=== PATIENT | male | born 1950 | race Caucasian/White ===

== ENCOUNTER → 2018-05-10 | Outpatient (CLI) | payer MEDICARE ==
[~2018-05-10] MED LIST: ACET-2422 PO; ACET325T49 PO; BARIUM SUSPENSION 105% (LIQUID POLIBAR PLUS) 240 ML/DOSE PO ONE; BARIUM SUSPENSION 60% (LIQUID EZ PAQUE) 240 ML DOSE PO ONE; BENZ-36 PO; CITA20TA12 PO; CITA20TA9 PO; CLOR3.755 PO; DIGO125T PO; DILT180C82 PO; DILT180C9 PO; DIPH25TA31 PO; FAMO-144 PO; FOLI1TAB24 PO; FURO40TA4 PO; INFL100V IV; LISI40TA PO; METH25VI57 IM; OXYC1TAB87 PO; POTA20TA8 PO; PRAV40TA2 PO; RIVA20TA PO; TRAZ-189 PO
--- NOTE | 2018-05-10 10:33 | Diagnostic Imaging Report ---
INDICATION: Preoperative gastric sleeve surgery. Patient ingested effervescent crystals as well as thin and thick barium and imaging of the esophagus, stomach and proximal small bowel was performed. A total of one minute and 12 seconds of fluoroscopy was utilized. The esophagus has a smooth contour. No mass or stricture is identified. No gastroesophageal reflux was demonstrated. There is no hiatal hernia identified. Prompt emptying into the small bowel is seen. Visualized small bowel is unremarkable. Stomach is grossly unremarkable. IMPRESSION: Unremarkable upper GI study. Dictated by: Dictated on workstation # [id number]
== END ==
LOC: RAD 08:57
PROVIDERS: ATTEND Surgery
DX: Z01.818 Encounter for other preprocedural examination (principal); K21.9 Gastro-esophageal reflux disease without esophagitis
CPT/HCPCS: 74241

== ENCOUNTER 2018-06-18 09:25 | Outpatient (CLI) | payer MEDICARE ==
[~2018-06-18] VITALS: Ht 182.9 cm; Wt 176.4 kg
[~2018-06-18 09:25] MED LIST changes: -BARIUM SUSPENSION 105% (LIQUID POLIBAR PLUS) 240 ML/DOSE PO ONE; -BARIUM SUSPENSION 60% (LIQUID EZ PAQUE) 240 ML DOSE PO ONE
[2018-06-18 09:42] VITALS: BP 150/74
[2018-06-18] MEDS ORDERED: FAMO20TA5 PO (10:18)
[2018-06-18] MEDS ORDERED: ALPR0.5T7 PO (10:18)
[2018-06-18] MEDS ORDERED: CALC-250 PO (10:18)
[2018-06-18] MEDS ORDERED: DILT120T3 PO (10:18)
[2018-06-18] MEDS ORDERED: TRAM50TA2 PO (10:18)
[2018-06-18] MEDS ORDERED: METH2.5T PO (10:18)
[2018-06-18] MEDS ORDERED: CALC600T12 PO (10:18)
[2018-06-18] MEDS ORDERED: GABA-488 PO (10:18)
[2018-06-18 10:37] LABS: BASOPHILS % (AUTO) 0 % (0-10); EOSINOPHILS # (AUTO) 0.2 10^3/uL (0.0-0.3); EOSINOPHILS % (AUTO) 3 % (0-10); HEMATOCRIT 42 % (40-54); HEMOGLOBIN 14.1 G/DL (13.3-17.7); LYMPHOCYTES # (AUTO) 1.3 X 10^3 (1.0-4.0); LYMPHOCYTES % (AUTO) 20 % (12-44); MEAN CORPUSCULAR HEMOGLOBIN 33 PG (25-34); MEAN CORPUSCULAR HGB CONC 34 G/DL (32-36); MEAN CORPUSCULAR VOLUME 97 FL (80-99); MEAN PLATELET VOLUME 11.5 FL (7.4-10.4); MONOCYTES # (AUTO) 0.6 X 10^3 (0.0-1.0); MONOCYTES % (AUTO) 9 % (0-12); NEUTROPHILS # (AUTO) 4.4 X 10^3 (1.8-7.8); NEUTROPHILS % (AUTO) 68 % (42-75); PLATELET COUNT 145 10^3/uL (130-400); RED BLOOD COUNT 4.31 10^6/uL (4.35-5.85); RED CELL DISTRIBUTION WIDTH 15.1 % (10.0-14.5); WHITE BLOOD COUNT 6.5 10^3/uL (4.3-11.0)
[2018-06-18 10:52] LABS: BUN/CREATININE RATIO 9; CALCIUM 9.4 MG/DL (8.5-10.1); CARBON DIOXIDE 22 MMOL/L (21-32); CHLORIDE 101 MMOL/L (98-107); CREATININE SERUM 0.94 MG/DL (0.60-1.30); GFR ESTIMATED > 60; GLUCOSE 77 MG/DL (70-105); POTASSIUM 3.8 MMOL/L (3.6-5.0); SODIUM 136 MMOL/L (135-145)
[2018-06-18] MEDS ORDERED: DILT-27 PO (14:57)
[2018-06-19] MEDS ORDERED: ALLERGY SHOT INJ (11:00)
[2018-06-19] MEDS ORDERED: TRAZ-190 PO (11:00)
== END 2018-06-18 10:10 | disposition home or self-care (01) ==
LOC: PREOP 09:25
PROVIDERS: ATTEND Surgery
DX: Z01.812 Encounter for preprocedural laboratory examination (principal); Z11.2 Encounter for screening for other bacterial diseases; E66.01 Morbid (severe) obesity due to excess calories; Z68.43 Body mass index [BMI] 50.0-59.9, adult
CPT/HCPCS: 36415; 80048; 85025; 87081

== ENCOUNTER 2018-06-21 06:15 | Inpatient (IN) | payer MEDICARE ==
[~2018-06-21] VITALS: Ht 182.9 cm; Wt 176.4 kg
[~2018-06-21 06:15] MED LIST changes: +ALLERGY SHOT INJ; +ALPR0.5T7 PO; +CALC-250 PO; +CALC600T12 PO; +DILT-27 PO; +DILT120T3 PO; +FAMO20TA5 PO; +GABA-488 PO; +METH2.5T PO; +TRAM50TA2 PO; +TRAZ-190 PO
--- OUTSIDE RECORDS SUMMARY | 2018-06-21 06:22 | XMS REPORT ---
Author Author BAILEE HAINES Organization [facility] [place] Address [address] [place] [address] Care Team Providers Care Refrigerator Car Icer Name Role Phone BAILEE HIANES Unavailable PROBLEMS Type Condition ICD9-CM Code [id number] Code Onset Dates Condition Status SNOMED Code Problem Situational phobia F40.248 Active [id number] ALLERGIES No Information ENCOUNTERS Encounter Location Date Diagnosis [facility] [place] [address] [facility] [id number] [address] May, Situational phobia F40.248 IMMUNIZATIONS No Known Immunizations SOCIAL HISTORY Never Assessed REASON FOR VISIT bariatric eval PLAN OF CARE VITAL SIGNS MEDICATIONS Unknown Medications RESULTS No Results PROCEDURES Procedure Date Ordered Result Body Site [facility] VISIT [facility]ENT[facility] NEW PT May 25, 2018 Psych diagnostic evaluation, new patient May 25, 2018 INSTRUCTIONS MEDICATIONS ADMINISTERED No Known Medications
[2018-06-21] MEDS ORDERED: ceFAZolin INJECTION 1,000 MG in NS (IVPB) 50 ML IV ONE (06:30)
[2018-06-21] MEDS ORDERED: CATHETER FLUSH 10 ML SYR IV PRN (06:45)
[2018-06-21 07:00] VITALS: BP 116/75
[2018-06-21] MEDS ORDERED: LACTATED RINGERS 1,000 ML IV PRN (07:09)
[2018-06-21] MEDS ORDERED: FAMOTIDINE 20MG/2ML IV (PEPCID) IV ONE (07:15)
[2018-06-21] MEDS ORDERED: MIDAZOLAM 2 MG/2 ML (VERSED) VIAL ONE (07:18)
[2018-06-21] MEDS ORDERED: proPOfol 200 MG/20 ML (DIPRIVAN) VIAL IV ONE (07:18)
[2018-06-21] MEDS ORDERED: fentaNYL INJECTION 100 MCG/2 ML AMP ONE ×2 (07:18→11:17)
[2018-06-21] MEDS ORDERED: LIDOCAINE PF 2% 5 ML (XYLOCAINE) VIAL ONE (07:19)
[2018-06-21] MEDS ORDERED: ONDANSETRON 4 MG/2 ML (SDV) Z0FRAN ONE (07:19)
[2018-06-21] MEDS ORDERED: SEVOFLURANE (ULTANE) 15 ML INHAL SOLN ONE ×5 (07:19→07:23)
[2018-06-21] MEDS ORDERED: DEXAMETHASONE 10 MG/ML (DECADRON) 1 ML VIAL ONE (07:19)
[2018-06-21] MEDS: LACTATED RINGERS 1,000 ML IV PRN ×3 (07:42→11:54)
[2018-06-21] MEDS ORDERED: BUP/EPI 0.5% 1:200,000 (SENSORCAINE) 30 ML VIAL ONE (07:46)
--- NOTE | 2018-06-21 08:20 | Progress Note-Pre Operative ---
Pre-Operative Progress Note H&P Reviewed The H&P was reviewed, patient examined and no changes noted. Date Seen by Provider: Jun 21, 2018 Time Seen by Provider: 08:10 Date H&P Reviewed: Jun 21, 2018 Time H&P Reviewed: 08:15 Pre-Operative Diagnosis: Morbid obesity, hypertension, PEARL, GERD ERICA ANAND APRN Jun 21, 2018 8:20 am
[2018-06-21] MEDS ORDERED: ceFAZolin 2 GM IV Premixed 50 ML IV ONE (08:45)
[2018-06-21] MEDS ORDERED: DILTIAZEM 25 MG/5 ML INJ (CARDIZEM) VIAL ONE (10:15)
[2018-06-21] MEDS ORDERED: LABETALOL HCL 20 MG/4 ML VIAL ONE (11:01)
[2018-06-21] MEDS ORDERED: SUCCINYLCHOLINE INJ 100 MG/5 ML SYR ONE (11:28)
[2018-06-21] MEDS ORDERED: ROCURONIUM 10 MG/ML 5 ML SYRINGE IV ONE (11:28)
[2018-06-21] MEDS ORDERED: NEOSTIGMINE 1 MG/ML 5 ML SYRINGE ONE (11:33)
[2018-06-21] MEDS ORDERED: GLYCOPYRROLATE 0.2 MG/ML (ROBINUL) 2 ML VIAL ONE (11:33)
[2018-06-21] MEDS ORDERED: NS IV 1000 ML 1,000 ML IV SCH (11:41)
--- NOTE | 2018-06-21 11:41 | Progress Note-Post Operative ---
Post-Operative Progess Note Surgeon (s)/Product Management Specialist (s) Surgeon ALINE GRAHAM MD Product Management Specialist: same Pre-Operative Diagnosis Morbid obesity, hypertension, PEARL, GERD Post-Operative Diagnosis same Procedure & Operative Findings Date of Procedure 06/21/18 Procedure Performed/Findings laparoscopic gastric sleeve resection. Anesthesia Type GET Estimated Blood Loss Estimated blood loss (mL): 125ml Specimens/Packing Specimens Removed stomach ALINE GRAHAM MD Jun 21, 2018 11:41 am
[2018-06-21] MEDS ORDERED: KETOROLAC 30 MG/ML VIAL ONE (11:42)
[2018-06-21] MEDS ORDERED: oxyCODONE 5 MG/5 ML ORAL SOLN (roxiCODONE) 5 ML UDC PO PRN (11:45)
[2018-06-21] MEDS ORDERED: NALOXONE 0.4 MG/ML 1 ML (NARCAN) VIAL IV PRN (11:45)
[2018-06-21] MEDS ORDERED: METOCLOPRAMIDE INJ 10 MG/2 ML (REGLAN) IV PRN (11:45)
[2018-06-21] MEDS ORDERED: fentaNYL INJECTION 1,000 MCG in NS (IVPB) 80 ML IV SCH (11:45)
[2018-06-21] MEDS ORDERED: ONDANSETRON 4 MG/2 ML (SDV) Z0FRAN IV PRN (11:45)
[2018-06-21] MEDS ORDERED: diphenhydrAMINE 50 MG/ML INJ (BENADRYL) IVP PRN (11:45)
[2018-06-21] MEDS ORDERED: HYDROmorphone 2 MG/ML VIAL (DILAUDID) ONE (11:54)
[2018-06-21] MEDS ORDERED: HYDROmorphone 2 MG/ML VIAL (DILAUDID) IV ONE (12:00)
[2018-06-21] MEDS ORDERED: ONDANSETRON 4 MG/2 ML (SDV) Z0FRAN IVP PRN (12:00)
[2018-06-21] MEDS ORDERED: METOCLOPRAMIDE INJ 10 MG/2 ML (REGLAN) ONE (12:18)
[2018-06-21] MEDS: METOCLOPRAMIDE INJ 10 MG/2 ML (REGLAN) IVP SCH ×2 (12:20→17:31)
[2018-06-21] MEDS: ONDANSETRON 4 MG/2 ML (SDV) Z0FRAN IVP SCH ×2 (12:23→17:31)
[2018-06-21 13:20] VITALS: BP 171/83
[2018-06-21] MEDS ORDERED: diphenhydrAMINE 25 MG TAB (BENADRYL) PO PRN (13:30)
[2018-06-21] MEDS: NS IV 500 ML 500 ML IV SCH (13:48)
[2018-06-21 14:20] VITALS: BP 169/84
[2018-06-21] MEDS: 1/2 NS W/KCL 20 MEQ/L 1,000 ML IV SCH ×3 (14:30→23:30)
[2018-06-21] MEDS: metroNIDAZOLE 500MG/100ML IVPB 100 ML IV SCH ×2 (14:30→20:23)
[2018-06-21 15:20] VITALS: BP 181/86
[2018-06-21] MEDS: ENOXAPARIN 60 MG/0.6 ML (LOVENOX) SYR SC SCH (15:20)
[2018-06-21] MEDS: RT-ALBUTEROL SULF 2.5 MG/3 ML PRE-MIX VIAL INH SCH ×4 (15:21→22:32)
[2018-06-21 16:20] VITALS: BP 174/80
[2018-06-21] MEDS ORDERED: FLU QUADRIvalent (5+ YOA) 2018-2019 (AFLURIA) 0.5 ML IM ONE (17:15)
[2018-06-21] MEDS: ceFAZolin 2 GM IV Premixed 50 ML IV SCH (17:31)
--- NOTE | 2018-06-21 19:13 | OPERATIVE REPORT ---
DATE OF SERVICE: 06/21/2018 ATTENDING PHYSICIAN: Dr. Porter. PREOPERATIVE DIAGNOSES: 1. Morbid obesity. 2. Gastroesophageal reflux disease. 3. Hypertension. 4. Sleep apnea. POSTOPERATIVE DIAGNOSES: 1. Morbid obesity. 2. Gastroesophageal reflux disease. 3. Hypertension. 4. Sleep apnea. PROCEDURE: Laparoscopic gastric sleeve resection. SURGEON: Aline Graham MD ANESTHESIA: General endotracheal. ESTIMATED BLOOD LOSS: 125 mL. FINDINGS: Mild liver steatosis, hepatomegaly, normal-appearing gallbladder. No hiatal hernia. DISPOSITION: The patient tolerated the procedure well. INDICATION FOR PROCEDURE: The patient is a 67-year-old male with morbid obesity who is in our surgical weight loss program for the laparoscopic gastric sleeve resection and meets the medical criteria for bariatric surgery. He began to gain the majority of his adult weight 20 years ago after suffering a back injury at work and since that time, he has had difficulty with exercise and doing regular activities. Over the course of 20 years he has gained over 200 pounds. He has tried a number of diet attempts including high protein, low carbohydrate diets as well as cessation of all sugar and would lose some weight; however, would regain the weight back. He has tried exercise programs including walking, treadmill, and exercise bike again with no success. His medical comorbidities related to his obesity include sleep apnea, hypertension, hypercholesterolemia, gastroesophageal reflux disease, anxiety, depression lower extremity edema, coronary artery disease, and peripheral neuropathy. DESCRIPTION OF PROCEDURE: The patient was brought to the operating room, laid supine on the table. After adequate IV pain and sedating medications and general endotracheal intubation, the abdomen was prepped and draped in standard surgical fashion. A 0.5% Marcaine with epinephrine was then used to anesthetize the overlying skin in the left upper abdominal quadrant. A small transverse skin incision made using a 15 blade. A 0 silk suture was applied to the medial aspect of the incision for traction and a Veress needle inserted with a low-opening pressure of 0 mmHg and the abdomen was then insufflated to 15 mmHg pressure. The Veress needle removed and a 5 mm Xcel trocar placed followed by a 5 mm 45-degree angle laparoscope to visualize the peritoneal cavity. A 4-quadrant abdominal exploration was performed. Early liver steatosis and hepatomegaly identified. The gallbladder appeared normal. There was no hiatal hernia identified. Under direct visualization, we then proceeded to place a midabdominal left of midline 10 mm port after the skin and peritoneal lining were anesthetized using 0.5% Marcaine with epinephrine and a transverse skin incision made using a 15 blade. In a similar manner, a midabdominal right of midline 15 mm port was placed followed by a right upper abdominal quadrant 5 mm port. The epigastric region was then anesthetized and a transverse skin incision made using 11 blade. A trocar to a 5-mm port was then used to create a tract to the abdominal wall layers and a medium size Nathansen liver retractor was placed in the left lobe of the liver retracting anteriorly and superiorly. The patient was then placed in steep reverse Trendelenburg position. We then measured 6 cm from the pylorus along the greater curvature and marked this with a marking pen. We then proceeded with opening the gastrocolic ligament next to the stomach entering the lesser sac. We then proceeded caudally approximately until we were approximately 2 cm below our marking using Sonicision with visualization of good hemostasis. We then proceeded proximally along the greater curvature taking down the short gastric vessels. The entire angle of His connective tissue fibers as well as the posterior stomach behind this was also dissected out. Good hemostasis was observed. A 42-Haitian tapered bougienage was then placed under direct visualization and the tip directed into the pylorus. Using the bougie as our guide, we proceeded with our gastric sleeve resection, first using a 45 mm polyglycolic acid black load approximately 2 cm below our marking. We then proceeded with two 60 mm black loads followed by two 60 mm purple loads completing our gastric sleeve resection leaving approximately 2 cm near the gastroesophageal junction. Good hemostasis was visualized. The staple line corners were then clipped with 5 mm clips. The Tisseel fibrin glue was then placed onto the staple line and the omentum placed over the staple line. The bougie was then removed. The stomach was removed through the 15 mm port site. The fascia and peritoneum to the 15, and 10 mm port sites were then closed under direct visualization using a Homero-Roslyn device and 0 Vicryl suture. The abdomen was desufflated and remaining ports removed. All skin incisions were closed using 4-0 Monocryl running subcuticular sutures. Wounds were then cleaned and covered with Dermabond. The patient tolerated the procedure well. We will admit him to the floor and start with IV pain medication with a DIRECTOR OF OPERATIONS pump. We will also proceed with DVT prophylaxis with early ambulation, calf SCDs as well as Lovenox injections. Tomorrow morning, we will start a phase I clear liquid diet. Once he is tolerating at least 60 mL of clears every 30 minutes, has adequate pain control with oral pain medication and is ambulating well, we will discharge him home. Job ID: [id number] DocumentID: [id number] Dictated Date: 06/21/2018 12:04:51 Watch Leader Date: 06/21/2018 19:12:51 Dictated By: ALINE GRAHAM MD
[2018-06-21 20:55] VITALS: BP 175/81
[2018-06-22 00:19] VITALS: BP 186/83
[2018-06-22] MEDS: ceFAZolin 2 GM IV Premixed 50 ML IV SCH ×2 (00:50→08:21)
[2018-06-22] MEDS: ENOXAPARIN 60 MG/0.6 ML (LOVENOX) SYR SC SCH (00:54)
[2018-06-22] MEDS: RT-ALBUTEROL SULF 2.5 MG/3 ML PRE-MIX VIAL INH SCH ×2 (02:37→06:36)
[2018-06-22] MEDS: METOCLOPRAMIDE INJ 10 MG/2 ML (REGLAN) IVP SCH ×2 (02:55)
[2018-06-22 04:10] VITALS: BP 175/81
[2018-06-22] MEDS: NS IV 500 ML 500 ML IV SCH (04:32)
[2018-06-22] MEDS: metroNIDAZOLE 500MG/100ML IVPB 100 ML IV SCH (05:10)
[2018-06-22] MEDS: ONDANSETRON 4 MG/2 ML (SDV) Z0FRAN IVP SCH ×2 (05:10)
[2018-06-22 06:45] LABS: HEMOGLOBIN 13.6 G/DL (13.3-17.7); MEAN PLATELET VOLUME 11.2 FL (7.4-10.4); RED BLOOD COUNT 4.17 10^6/uL (4.35-5.85); RED CELL DISTRIBUTION WIDTH 14.9 % (10.0-14.5); WHITE BLOOD COUNT 10.2 10^3/uL (4.3-11.0)
[2018-06-22 07:04] LABS: BUN/CREATININE RATIO 5; CALCIUM 9.3 MG/DL (8.5-10.1); CARBON DIOXIDE 17 MMOL/L (21-32); CHLORIDE 101 MMOL/L (98-107); CREATININE SERUM 1.17 MG/DL (0.60-1.30); GFR ESTIMATED > 60; GLUCOSE 126 MG/DL (70-105); POTASSIUM 4.3 MMOL/L (3.6-5.0); SODIUM 135 MMOL/L (135-145)
[2018-06-22 08:00] VITALS: BP 159/81
[2018-06-22] MEDS: 1/2 NS W/KCL 20 MEQ/L 1,000 ML IV SCH (08:16)
--- NOTE | 2018-06-22 08:51 | Anesthesia-General Post-Op ---
General Patient Condition Mental Status/LOC: Same as Preop Cardiovascular: Satisfactory Nausea/Vomiting: Absent Respiratory: Satisfactory Pain: Controlled Complications: Absent Post Op Complications Complications None Follow Up Care/Instructions Patient Instructions None needed. Anesthesia/Patient Condition Patient Condition Patient is doing well, no complaints, stable vital signs, no apparent adverse anesthesia problems. No complications reported per nursing. BRANDI VAZQUEZ CRNA Jun 22, 2018 08:50
[2018-06-22] MEDS ORDERED: PANTOPRAZOLE 40 MG (PROTONIX) VIAL IV SCH (09:00)
[2018-06-22] MEDS ORDERED: PANTOPRAZOLE 40 MG (PROTONIX) TAB PO SCH (09:00)
[2018-06-22] MEDS ORDERED: SENNA W/DOCUSATE (SENOKOT S) TABLET PO SCH (09:00)
[2018-06-22] MEDS ORDERED: METOCLOPRAMIDE INJ 10 MG/2 ML (REGLAN) IVP PRN (11:45)
[2018-06-22] MEDS ORDERED: ONDANSETRON 4 MG/2 ML (SDV) Z0FRAN IVP PRN (11:45)
== END 2018-06-22 10:30 | disposition home or self-care (01) | DRG 621 ==
LOC: 4TH 06:15 → SURG 06:16 → EDSTATUS 08:00 → 4TH 13:05
PROVIDERS: ADMIT Surgery; ATTEND Surgery
PROC: 0DB64Z3 Excision of Stomach, Percutaneous Endoscopic Approach, Vertical (ICD-10-PCS; principal; 2018-06-21 10:03)
DX: E66.01 Morbid (severe) obesity due to excess calories (principal); Z68.43 Body mass index [BMI] 50.0-59.9, adult; K21.9 Gastro-esophageal reflux disease without esophagitis; I10 Essential (primary) hypertension; F41.9 Anxiety disorder, unspecified; F32.9 Major depressive disorder, single episode, unspecified; R60.0 Localized edema; G47.33 Obstructive sleep apnea (adult) (pediatric); E78.00 Pure hypercholesterolemia, unspecified; I25.10 Atherosclerotic heart disease of native coronary artery without angina pectoris; G62.9 Polyneuropathy, unspecified; M06.9 Rheumatoid arthritis, unspecified; L40.50 Arthropathic psoriasis, unspecified; F17.220 Nicotine dependence, chewing tobacco, uncomplicated; Z80.3 Family history of malignant neoplasm of breast; Z80.49 Family history of malignant neoplasm of other genital organs; Z80.52 Family history of malignant neoplasm of bladder
CPT/HCPCS: 36415; 80048; 85027; 88307; 94640; 94664; 94760

== ENCOUNTER → 2019-03-07 | Outpatient (CLI) | payer MEDICARE ==
[~2019-03-07] MED LIST changes: -RIVA20TA PO; +RIVA20TA2 PO; -TRAZ-189 PO; +TRAZ-222 PO
--- NOTE | 2019-03-07 15:40 | Diagnostic Imaging Report ---
INDICATION: Fall two weeks ago, complaining of right shoulder pain. TIME OF EXAM: 3:31 p.m. FINDINGS: Two views of the right shoulder demonstrate normal glenohumeral and acromioclavicular alignment. Acromiohumeral space is normal. No fracture or dislocation is seen. IMPRESSION: No acute bony abnormality is detected. Dictated by: Dictated on workstation # [id number]
== END ==
LOC: RAD FS 15:23
PROVIDERS: ATTEND Nurse Practitioner Family
DX: S49.91XA Unspecified injury of right shoulder and upper arm, initial encounter (principal); W19.XXXA Unspecified fall, initial encounter
CPT/HCPCS: 73030

== ENCOUNTER 2019-04-30 10:18 | Day surgery (SDC) | payer MEDICARE ==
[~2019-04-30] VITALS: Ht 182.9 cm; Wt 151.5 kg
[2019-04-30] VITALS (8 sets, daily range): BP systolic 81–128; BP diastolic 65–83
[2019-04-30] MEDS ORDERED: LIDOCAINE 1% INJ 20 ML 20 ML VIAL ONE (10:24)
[2019-04-30] MEDS ORDERED: HEParin (CATH LAB) 2,000 ML IV ONE (10:25)
[2019-04-30] MEDS ORDERED: NS IV 1000 ML 1,000 ML ONE (10:25)
[2019-04-30] MEDS ORDERED: NS IV 1000 ML 1,000 ML IV SCH ×2 (10:43→15:06)
[2019-04-30 11:12] LABS: HEMOGLOBIN 14.1 G/DL (13.3-17.7); RED CELL DISTRIBUTION WIDTH 14.7 % (10.0-14.5); WHITE BLOOD COUNT 6.1 10^3/uL (4.3-11.0)
[2019-04-30 11:26] LABS: PROTHROMBIN TIME PATIENT 13.9 SEC (12.2-14.7)
[2019-04-30 11:33] LABS: ALANINE AMINOTRANSFERASE 20 U/L (0-55); ALKALINE PHOSPHATASE 108 U/L (40-136); BILIRUBIN,TOTAL 0.6 MG/DL (0.1-1.0); BUN/CREATININE RATIO 18; CALCIUM 9.2 MG/DL (8.5-10.1); CARBON DIOXIDE 24 MMOL/L (21-32); CHLORIDE 108 MMOL/L (98-107); CHOLESTEROL 146 MG/DL (< 200); CREATININE SERUM 0.83 MG/DL (0.60-1.30); GFR ESTIMATED > 60; GLUCOSE 101 MG/DL (70-105); HDL CHOLESTEROL 48 MG/DL (40-60); POTASSIUM 4.1 MMOL/L (3.6-5.0); SODIUM 140 MMOL/L (135-145); TOTAL PROTEIN 7.5 GM/DL (6.4-8.2); TRIGLYCERIDES 84 MG/DL (<150); VLDL CHOLESTEROL 17 MG/DL (5-40)
[2019-04-30] MEDS ORDERED: METH2.5T PO (11:46)
[2019-04-30] MEDS ORDERED: TRAM50TA2 PO (11:46)
[2019-04-30] MEDS ORDERED: PANT40TA3 PO (11:46)
[2019-04-30] MEDS ORDERED: ASPI-586 PO (11:46)
[2019-04-30] MEDS ORDERED: CHOL100045 PO (11:46)
[2019-04-30] MEDS ORDERED: ONDN4T PO (11:48)
[2019-04-30] MEDS ORDERED: fentaNYL INJECTION 100 MCG/2 ML AMP ONE (14:11)
[2019-04-30] MEDS ORDERED: MIDAZOLAM 5 MG/5 ML (VERSED) VIAL ONE (14:11)
--- NOTE | 2019-04-30 14:30 | Cardiac Procedure Note-CS/ASA ---
Pre-Procedure Note Pre-Op Procedure Note H&P Reviewed The H&P was reviewed, patient examined and no changes noted. Date H&P Reviewed: Apr 30, 2019 Time H&P Reviewed: 14:30 Conscious Sedation Pre-Proced Time 14:30 ASA Score 3 For ASA 3 and 4: Consider anesthesia and medical clearance. Also, for patients with a history of failed moderate sedation consider anesthesia. Airway Lungs Heart ASA score ASA 1: a normal healthy patient ASA 2: a patient with a mild systemic disease (mid diabetes, controlled hypertension, obesity ASA 3: a patient with a severe systemic disease that limits activity (angina, COPD, prior Myocardial infarction) ASA 4: a patient with an incapacitating disease that is a constant threat to life (CHF, renal failure) ASA 5: a moribund patient not expected to survive 24 hrs. (ruptured aneurysm) ASA 6: a declared brain- patient whose organs are being harvested. For emergent operations, add the letter E after the classification Mallampati Classification Grade 3 Sedation Plan Analgesia, Amnesia, Plan communicated to team members, Discussed options with patient/fam, Discussed risks with patient/fam The patient is an appropriate candidate to undergo the planned procedure, sedation, and anesthesia. The patient immediately re-assessed prior to indication. POP STEPHENS MD FACP FAC CCDS Apr 30, 2019 14:30
--- NOTE | 2019-04-30 15:09 | Discharge Inst-Cardiology ---
Discharge Inst-Cardiac Problems Reviewed?: Yes Discharge Medications Continued Medications: Acetaminophen (Acetaminophen ER) 650 Mg Tablet.er 650 MG PO TID PRN for PAIN-MILD, TAB [Allergy Shot] () INJ Castellanos Alprazolam (Alprazolam) 0.5 Mg Tablet 0.5 MG PO TID PRN for ANXIETY, TAB Aspirin (Aspir 81) 81 Mg Tablet.dr 81 MG PO DAILY, TAB Cholecalciferol (Vitamin D3) (Vitamin D) 1,000 Unit Tablet 1000 UNIT PO DAILY, TAB Citalopram Hydrobromide (Citalopram HBr) 20 Mg Tablet 20 MG PO BID Diltiazem HCl (Diltiazem 24Hr ER) 120 Mg Cap.er.24h 120 MG PO DAILY, CAP Diphenhydramine HCl (Diphenhydramine HCl) 25 Mg Tablet 25 MG PO HS, TAB Folic Acid (Folic Acid) 1 Mg Tablet 1 MG PO DAILY, TAB Furosemide (Furosemide) 40 Mg Tablet 40 MG PO BID, TAB Gabapentin (Gabapentin) 300 Mg Capsule 300 MG PO BID, CAP prescribed TID, but only take BID Infliximab (Remicade) 100 Mg Soln 1000 MG IV Q 8 weeks, EA Lisinopril (Lisinopril) 40 Mg Tablet 40 MG PO DAILY, TAB Methotrexate Sodium (Methotrexate) 2.5 Mg Tablet 12.5 MG PO Monday and Monday, TAB Ondansetron HCl (Zofran) 4 Mg Tab 4 MG PO Q4H PRN for NAUSEA/VOMITING, TAB Pantoprazole Sodium (Pantoprazole Sodium) 40 Mg Tablet.dr 40 MG PO DAILY, TAB Potassium Chloride (Klor-Con M20) 20 Meq Tab.er.prt 20 MEQ PO BID Pravastatin Sodium (Pravastatin Sodium) 40 Mg Tablet 40 MG PO HS, TAB Rivaroxaban (Xarelto Tablet) 20 Mg Tablet 20 MG PO HS, TAB Tramadol HCl (Tramadol HCl) 50 Mg Tablet 50 MG PO BID PRN for PAIN-MODERATE, TAB Trazodone HCl (Trazodone HCl) 100 Mg Tablet 100 MG PO HS, TAB POP STEPHENS MD FACP FAC CCDS Apr 30, 2019 15:09
--- NOTE | 2019-04-30 15:10 | Discharge Inst-Post CATH ---
Discharge Inst-CATH/EP Problems Reviewed?: Yes Final Diagnosis F/u with Dr Bills in 2 weeks Post Cardiac Cath/EP D/C Inst ACTIVITY * Go Home directly and rest. * Limit activity of the leg (or wrist if it was used) for 7 days including aerobics, swimming, jogging, bicycling, etc. * Restrict stair-climbing for 7 days if possible, if not, climb up with your non-cath leg, then bring together on the same step. * Avoid lifting, pushing, pulling or excessive movement of the affected extremity for 7 days. * Customary sexual activity may be resumed after 2 days-use caution not to use a position that strains or causes pain to the affected extremity. * No driving for 24 hours. * NO SMOKING. * Avoid straining for bowel movements for 7 days. * Gentle walking on level ground is allowed. * Returning to work will depend on the type of procedure and the results. Your doctor will discuss this with you. CALL YOUR DOCTOR FOR ANY OF THE FOLLOWING: *If bleeding from the puncture site occurs- Apply gentle pressure to site with clean cloth and call your doctor or EMS. * If a knot or lump forms under the skin, increases in size, or causes pain. * If bruising appears to be worsening or moving further down your leg instead of disappearing. * Temperature above 101 F. CARE OF YOUR GROIN INCISION; * Bruising or purple discoloration of the skin near the puncture site is common. * You may shower only, no bathtub bathing for 5 days. Be careful to avoid slipping as your leg may feel stiff. * If a closure device was used on your femoral artery, please see the attached guide regarding care of the device and your leg. * Leave dressing on FOR 24 hours. CARE OF YOUR WRIST INCISION; * Bruising or purple discoloration of the skin near the puncture site is common. * You may shower. * DO NOT submerge wrist. * Leave dressing on FOR 24 hours. POP BILLS MD FACP FAC CCDS Apr 30, 2019 15:10
[2019-04-30] MEDS ORDERED: PATIENT MAY USE OWN MEDS, ALL PO SCH (15:15)
--- NOTE | 2019-04-30 20:07 | CARDIAC CATHETERIZATION ---
DATE OF SERVICE: 04/30/2019 CARDIAC CATHETERIZATION REPORT The patient is a 68-year-old man who is due to undergo surgery and who is known to have coronary artery disease and has had stenting of a diagonal with a 2.5 x 20 mm stent in 2011. A myocardial perfusion imaging study carried out at the [facility] in [place], [place]. It was reported to have shown a fixed posterobasal defect and a very small reversible defect in the lateral apical portion of the left ventricle. Accordingly, cardiac catheterization was recommended and was carried out today after having obtained informed consent. PROCEDURE: He was brought to the cardiac catheterization laboratory in a fasting state. Right groin was prepared and draped in the usual sterile fashion. Lidocaine 1% for local anesthesia. Modified Seldinger technique used to advance a 5-Kyrgyz sheath in right femoral artery, 5-Kyrgyz JL4 catheter for coronary angiography, 5-Kyrgyz JR4 catheter for right coronary angiography, 5-Kyrgyz pigtail catheter was used for left heart catheterization and left ventricular angiography. Angiography of the right femoral artery was carried out through the sheath. Mynx was used to achieve hemostasis. He tolerated the procedure well. HEMODYNAMICS: Left ventricular end-diastolic pressure following coronary angiography was 14 mmHg. There is no significant pressure gradient on pullback across the aortic valve. Ascending aortic pressure was 90/57 with a mean of 71 mmHg. CORONARY ANGIOGRAPHY: Left main coronary artery is free of significant disease. Left anterior descending artery is free of significant disease. The first diagonal branch of the left anterior descending artery is stented in its proximal segment of the stent is patent. There is mild proximal disease in the first diagonal branch of the left anterior descending. Left circumflex artery has mild plaques. Right coronary artery is dominant and does not exhibit significant disease. Mild plaques are seen in the right coronary artery. LEFT VENTRICULAR ANGIOGRAPHY: Left ventricular angiography was carried out in the right anterior oblique projection. Global left ventricular systolic function is well preserved. Mild catheter-induced mitral regurgitation is seen. There appears to be mild to moderate mitral annular calcification. No distinct regional wall motion abnormalities are seen. Left ventricular ejection fraction approximately 55% to 60%. CONCLUSIONS: 1. Angiographically mild coronary artery disease. 2. Patent stent (known to be 2.5 x 20 mm placed in 2011 in [place], [place]) in the first diagonal branch of the left anterior descending. 3. Mild elevation of left ventricular end-diastolic pressure. 4. Well preserved global left ventricular systolic function with ejection fraction approximately 55% to 60%. DISCUSSION AND RECOMMENDATIONS: Based on results of the study, it appears appropriate to continue a conservative approach. Risk factor modification has been reviewed. Current regimen is being continued. He is due to undergo shoulder surgery. Risk for shoulder surgery is estimated to be intermediate and well optimized. He understands its risks and wishes to proceed. Job ID: [id number] DocumentID: [id number] Dictated Date: 04/30/2019 15:03:11 Business Office Coordinator Date: 04/30/2019 20:06:18 Dictated By: POP STEPHENS MD, MA, FACP, FACC,
== END 2019-04-30 20:05 ==
LOC: CATH 10:18 → ICU 15:15 → CATH 20:05
PROVIDERS: ATTEND Internal Medicine Cardiovascular Disease
DX: I25.10 Atherosclerotic heart disease of native coronary artery without angina pectoris (principal); I48.1 Persistent atrial fibrillation; I10 Essential (primary) hypertension; E66.9 Obesity, unspecified; E78.5 Hyperlipidemia, unspecified; G47.33 Obstructive sleep apnea (adult) (pediatric); G89.29 Other chronic pain; M54.9 Dorsalgia, unspecified; F17.210 Nicotine dependence, cigarettes, uncomplicated; Z95.1 Presence of aortocoronary bypass graft; Z79.82 Long term (current) use of aspirin; Z79.899 Other long term (current) drug therapy; Z79.01 Long term (current) use of anticoagulants; Z68.42 Body mass index [BMI] 45.0-49.9, adult; Z83.3 Family history of diabetes mellitus; Z80.9 Family history of malignant neoplasm, unspecified; Z82.49 Family history of ischemic heart disease and other diseases of the circulatory system
CPT/HCPCS: 36415; 80053; 80061; 85027; 85610; 85730; 87081; 93458

== ENCOUNTER 2019-05-04 01:35 | Emergency (ER) | payer MEDICARE ==
[~2019-05-04] VITALS: Ht 182 cm; Wt 151.0 kg
[~2019-05-04 01:35] MED LIST changes: +ASPI-586 PO; +CHOL100045 PO; +ONDN4T PO; +PANT40TA3 PO
--- NOTE | 2019-05-04 02:07 | ED Upper Extremity ---
General Stated Complaint: RIGHT WRIST PAIN Source: patient Exam Limitations: no limitations History of Present Illness Date Seen by Provider: May 04, 2019 Time Seen by Provider: 01:55 Initial Comments The patient is a 68-year-old male who presents for evaluation of right wrist pain and swelling. The patient has a history of psoriatic arthritis and takes me thotrexate but when he recently went to get his methotrexate filled the pharmacy was out of it so he has not been able to take it for the last few weeks. He states he noticed some soreness of the right wrist yesterday morning but overnight tonight the pain became acutely worse. He states that he sleeps in a recliner and he is unsure if he could've injured the wrist but denies any trauma he can recall. He states that he does have some mild chronic pain in both wrists but that this is different. He denies fevers or chills, any other joint pain, chest pain or shortness of breath, nausea or vomiting. 4 days ago the patient was having some chest discomfort and shortness of breath and had a cardiac catheter. The catheter showed some mild coronary artery disease with a patent previous symptoms which have been placed in 2011 as well as a good EF and otherwise functioning heart. His access was in the groin that he did have an IV in the right forearm but nothing near the right wrist. The patient denies a history of gout. He is alert and oriented 4, appears uncomfortable, but is in no distress this time. Onset: yesterday Severity: severe Pain/Injury Location: right wrist Method of Injury: unknown Modifying Factors: Improves With Movement (makes it worse) Allergies and Home Medications Allergies Coded Allergies: No Known Drug Allergies (Unverified , 03/23/16) Home Medications Acetaminophen 650 Mg Tablet.er, 650 MG PO TID PRN for PAIN-MILD, (Reported) Alprazolam 0.5 Mg Tablet, 0.5 MG PO TID PRN for ANXIETY, (Reported) Aspirin 81 Mg Tablet.dr, 81 MG PO DAILY, (Reported) Cholecalciferol (Vitamin D3) 1,000 Unit Tablet, 1,000 UNIT PO DAILY, (Reported) Citalopram Hydrobromide 20 Mg Tablet, 20 MG PO BID, (Reported) Diltiazem HCl 120 Mg Cap.er.24h, 120 MG PO DAILY, (Reported) Diphenhydramine HCl 25 Mg Tablet, 25 MG PO HS, (Reported) Folic Acid 1 Mg Tablet, 1 MG PO DAILY, (Reported) Furosemide 40 Mg Tablet, 40 MG PO BID, (Reported) Gabapentin 300 Mg Capsule, 300 MG PO BID, (Reported) prescribed TID, but only take BID Infliximab 100 Mg Soln, 1,000 MG IV Q 8 weeks, (Reported) Lisinopril 40 Mg Tablet, 40 MG PO DAILY, (Reported) Methotrexate Sodium 2.5 Mg Tablet, 12.5 MG PO Monday and Monday, (Reported) Ondansetron HCl 4 Mg Tab, 4 MG PO Q4H PRN for NAUSEA/VOMITING, (Reported) Pantoprazole Sodium 40 Mg Tablet.dr, 40 MG PO DAILY, (Reported) Potassium Chloride 20 Meq Tab.er.prt, 20 MEQ PO BID, (Reported) Pravastatin Sodium 40 Mg Tablet, 40 MG PO HS, (Reported) Rivaroxaban 20 Mg Tablet, 20 MG PO HS, (Reported) Tramadol HCl 50 Mg Tablet, 50 MG PO BID PRN for PAIN-MODERATE, (Reported) Trazodone HCl 100 Mg Tablet, 100 MG PO HS, (Reported) [Allergy Shot] , INJ Castellanos, (Reported) Patient Home Medication List Home Medication List Reviewed: Yes Review of Systems Constitutional: no symptoms reported EENTM: no symptoms reported Respiratory: no symptoms reported Cardiovascular: no symptoms reported Gastrointestinal: no symptoms reported Genitourinary: no symptoms reported Musculoskeletal: joint pain (right wrist pain and swelling) Skin: no symptoms reported Psychiatric/Neurological: No Symptoms Reported All Other Systems Reviewed Negative Unless Noted: Yes Past Fklrokl-Zpqjht-Wvkckw Hx Past Med/Social Hx: Reviewed Nursing Past Med/Soc Hx Patient Social History Alcohol Beverage of Choice: Beer, Whiskey Type Used: Cigarettes, Smokeless Tobacco Former Smoker, Quit: Mar 23, 1976 Recent Foreign Travel: No Contact w/Someone Who Travel: No Recent Hopitalizations: No Immunizations Up To Date Date of Pneumonia Vaccine: Jun 21, 2015 Seasonal Allergies Seasonal Allergies: Yes (ALLERGY SHOTS ONCE A WEEK) Past Medical History Surgeries: Yes (RIGHT KNEE SCOPE, R TKR LUMBAR BACK, BLADDER POLYPS) Respiratory: Yes (DOEST USE CPAP-CLAUSTROPHIC) Sleep Apnea Cardiac: Yes (STENT 2012 CARDIAC (AND LEG?)) Atrial Fibrillation, High Cholesterol, Hypertension, Valvular Heart Disease Neurological: Yes Reproductive Disorders: No Sexually Transmitted Disease: No HIV/AIDS: No Genitourinary: No Gastrointestinal: Yes Gastroesophageal Reflux, Polyps Musculoskeletal: Yes (psoriatic arthritis) Arthritis, Chronic Back Pain Endocrine: No HEENT: No Loss of Vision: Bilateral Hearing Impairment: Denies Cancer: No Did You Recieve Any Treatments: No Psychosocial: Yes Anxiety, Depression Integumentary: Yes Psoriasis Blood Disorders: No Adverse Reaction/Blood Tranf: No (HAS HAD BLOOD WITH NO REACTION) Family Medical History CANCER 19 FATHER 19 MOTHER (BREAST AND BLADDER) G8 SISTER (BREAST BOTH SISTERS) Hypertension 19 MOTHER G8 SISTER No Pertinent Family Hx Physical Exam Vital Signs Vital Signs - First Documented 05/04/19 01:49 Temp 36.7 Pulse 70 Resp 18 B/P (MAP) 165/80 (108) Pulse Ox 100 O2 Delivery Room Air Capillary Refill : Height, Weight, BMI Height: 6'0.00" Weight: 334lbs. 0.0oz. [id number]; 45.3 BMI Method: General Appearance: WD/WN, no apparent distress HEENT: PERRL/EOMI, normal ENT inspection Neck: non-tender, full range of motion, supple Cardiovascular: regular rate, rhythm, no JVD, other (1+ b/l pedal edema) Respiratory: chest non-tender, lungs clear, normal breath sounds, no respiratory distress Gastrointestinal: normal bowel sounds, non tender, soft Elbow/Forearm: normal inspection, non-tender, no evidence of injury Wrist: Yes limited ROM (secondary to pain/swelling right wrist), Yes pain, Yes soft tissue tenderness (right wrist), Yes swelling (mild wrist swelling, no erythema or warmth, similar amount of swelling in left wrist which is asymptomatic) Neurologic/Psychiatric: no motor/sensory deficits, alert, normal mood/affect, oriented x 3 Skin: normal color, warm/dry, other (no skin redness to either wrist) Progress/Results/Core Measures Results/Orders Lab Results Laboratory Tests Test 05/04/19 01:55 Range/Units White Blood Count 11.1 H 4.3-11.0 10^3/uL Red Blood Count 4.59 4.35-5.85 10^6/uL Hemoglobin 14.8 13.3-17.7 G/DL Hematocrit 44 40-54 % Mean Corpuscular Volume 96 80-99 FL Mean Corpuscular Hemoglobin 32 25-34 PG Mean Corpuscular Hemoglobin Concent 34 32-36 G/DL Red Cell Distribution Width 13.7 10.0-14.5 % Platelet Count 160 130-400 10^3/uL Mean Platelet Volume 10.8 H 7.4-10.4 FL Neutrophils (%) (Auto) 63 42-75 % Lymphocytes (%) (Auto) 25 12-44 % Monocytes (%) (Auto) 8 0-12 % Eosinophils (%) (Auto) 2 0-10 % Basophils (%) (Auto) 1 0-10 % Neutrophils # (Auto) 7.0 1.8-7.8 X 10^3 Lymphocytes # (Auto) 2.8 1.0-4.0 X 10^3 Monocytes # (Auto) 0.9 0.0-1.0 X 10^3 Eosinophils # (Auto) 0.3 0.0-0.3 10^3/uL Basophils # (Auto) 0.1 0.0-0.1 10^3/uL Sodium Level 134 L 135-145 MMOL/L Potassium Level 3.8 3.6-5.0 MMOL/L Chloride Level 94 L 98-107 MMOL/L Carbon Dioxide Level 24 21-32 MMOL/L Anion Gap 16 H 5-14 MMOL/L Blood Urea Nitrogen 12 7-18 MG/DL Creatinine 0.85 0.60-1.30 MG/DL Estimat Glomerular Filtration Rate > 60 BUN/Creatinine Ratio 14 Glucose Level 99 70-105 MG/DL Calcium Level 10.0 8.5-10.1 MG/DL Corrected Calcium 9.7 8.5-10.1 MG/DL Total Bilirubin 0.7 0.1-1.0 MG/DL Aspartate Amino Transf (AST/SGOT) 26 5-34 U/L Alanine Aminotransferase (ALT/SGPT) 21 0-55 U/L Alkaline Phosphatase 114 40-136 U/L Total Protein 8.5 H 6.4-8.2 GM/DL Albumin 4.4 3.2-4.5 GM/DL My Orders Orders - RAJNI EDWARD DO Cbc With Automated Diff (05/04/19 02:04) Erythrocyte Sedimentation Rate (05/04/19 02:04) Hs C Reactive Protein (05/04/19 02:04) Comprehensive Metabolic Panel (05/04/19 02:04) Uric Acid (05/04/19 02:04) Wrist 3 View Right (05/04/19 02:04) Ekg Tracing (05/04/19 02:04) Fentanyl Injection (Sublimaze Injection (05/04/19 02:15) Ice: Apply To Affected Area (05/04/19 02:24) Ed Iv/Invasive Line Start (05/04/19 02:44) Ketorolac Injection (Toradol Injection) (05/04/19 03:00) Methylprednisolone Sod Succ (Solu-Medrol (05/04/19 03:00) Oxycodone/Apap 5/325mg Tablet (Percocet (05/04/19 03:15) Medications Given in ED Current Medications Medications Dose Ordered Sig/Kassidy Route Start Time Stop Time Status Last Admin Dose Admin Fentanyl Citrate 75 mcg ONCE ONCE IVP 05/04/19 02:15 05/04/19 02:16 DC 05/04/19 02:20 75 MCG Ketorolac Tromethamine 30 mg ONCE ONCE IVP 05/04/19 03:00 05/04/19 03:01 DC 05/04/19 02:57 30 MG Methylprednisolone Sodium Succinate 125 mg ONCE ONCE IVP 05/04/19 03:00 05/04/19 03:01 DC 05/04/19 02:57 125 MG Vital Signs/I&O 05/04/19 01:49 Temp 36.7 Pulse 70 Resp 18 B/P (MAP) 165/80 (108) Pulse Ox 100 O2 Delivery Room Air Progress Progress Note : Progress Note @0305 - patient updated on lab and imaging results. The preliminary read of the chest x-ray shows some degenerative changes however no acute traumatic injury. The patient reports feeling much better after medications. Advised the patient to follow up with orthopedics in the next 1-2 days and to return to the emergency Department immediately for new or worsening symptoms such as fever or worsening pain. The patient expresses verbal understanding and agreement with t he plan and states that he would like to go home at this time. Uric acid and CRP are both send outs have not yet resulted. The patient states that he is going to start his methotrexate tomorrow as the pharmacy is getting a supply. Comment @0211 - Atrial fibrillation, rate of 75, normal axis, no acute ischemic findings noted, no STEMI, reviewed and interpreted by myself Departure Impression Primary Impression: Right wrist pain Disposition: 01 HOME, SELF-CARE Condition: Stable Departure-Patient Inst. Referrals: [facility] (PCP) Primary Care Physician DEANNA YOON APRN (Family) Primary Care Physician Patient Instructions: Common Wrist Injuries (DC), Gout (DC), Psoriatic Arthritis in Adults Add. Discharge Instructions: Follow-up with your orthopedic doctor in the next 1-2 days. Return to the Emergency Department immediately for new or worsening symptoms. Take the prescribed medicine as directed, as needed for pain. RAJNI EDWARD DO May 04, 2019 02:07
[2019-05-04 02:13] LABS: HEMATOCRIT 44 % (40-54); HEMOGLOBIN 14.8 G/DL (13.3-17.7); MEAN CORPUSCULAR HEMOGLOBIN 32 PG (25-34); MEAN CORPUSCULAR HGB CONC 34 G/DL (32-36); MEAN CORPUSCULAR VOLUME 96 FL (80-99); MEAN PLATELET VOLUME 10.8 FL (7.4-10.4); NEUTROPHILS % (AUTO) 63 % (42-75); PLATELET COUNT 160 10^3/uL (130-400); RED CELL DISTRIBUTION WIDTH 13.7 % (10.0-14.5); WHITE BLOOD COUNT 11.1 10^3/uL (4.3-11.0)
[2019-05-04 02:14] LABS: BASOPHILS # (AUTO) 0.1 10^3/uL (0.0-0.1); BASOPHILS % (AUTO) 1 % (0-10); EOSINOPHILS # (AUTO) 0.3 10^3/uL (0.0-0.3); EOSINOPHILS % (AUTO) 2 % (0-10); LYMPHOCYTES # (AUTO) 2.8 X 10^3 (1.0-4.0); LYMPHOCYTES % (AUTO) 25 % (12-44); MONOCYTES # (AUTO) 0.9 X 10^3 (0.0-1.0); MONOCYTES % (AUTO) 8 % (0-12)
[2019-05-04] MEDS ORDERED: fentaNYL INJECTION 100 MCG/2 ML AMP IVP ONE (02:15)
[2019-05-04 02:33] LABS: ALANINE AMINOTRANSFERASE 21 U/L (0-55); ALBUMIN 4.4 GM/DL (3.2-4.5); ALKALINE PHOSPHATASE 114 U/L (40-136); BILIRUBIN,TOTAL 0.7 MG/DL (0.1-1.0); BUN/CREATININE RATIO 14; CARBON DIOXIDE 24 MMOL/L (21-32); CHLORIDE 94 MMOL/L (98-107); CREATININE SERUM 0.85 MG/DL (0.60-1.30); GFR ESTIMATED > 60; GLUCOSE 99 MG/DL (70-105); POTASSIUM 3.8 MMOL/L (3.6-5.0); SODIUM 134 MMOL/L (135-145); TOTAL PROTEIN 8.5 GM/DL (6.4-8.2)
[2019-05-04] MEDS ORDERED: methylPREDNISolone 125 MG (Solu-MEDROL) VIAL IVP ONE (03:00)
[2019-05-04] MEDS ORDERED: KETOROLAC 30 MG/ML VIAL IVP ONE (03:00)
[2019-05-04] MEDS ORDERED: RX-OXYCODONE/APAP 5-325 MG #4 TAB PK PO PRN (03:15)
[2019-05-04] MEDS ORDERED: oxyCODONE/APAP 5/325MG (PERCOCET 5) TABLET PO ONE (03:15)
[2019-05-04 03:17] LABS: ERYTHROCYTE SEDIMENTATION RATE 35 MM/HR (0-30)
[2019-05-04 03:20] VITALS: BP 179/87
--- NOTE | 2019-05-04 07:18 | Diagnostic Imaging Report ---
INDICATION: Right wrist pain. COMPARISON: None available. TECHNIQUE: 3 views of right wrist were obtained. FINDINGS: No acute fracture or traumatic malalignment. There are moderate to severe degenerative changes at the radiocarpal joint characterized by irregularity of the articular surface of the distal radius and marginal osteophyte formation. There is also a corticated ossicle at the dorsal aspect of the distal radius which may relate to old trauma. Vascular calcifications are noted. No osseous erosions. IMPRESSION: 1. Advanced degenerative changes at the radiocarpal joint. 2. No acute osseous abnormality. Dictated by: Dictated on workstation # [id number]
[2019-05-04 15:27] LABS: URIC ACID 5.5 MG/DL (2.6-7.2)
== END 2019-05-04 03:20 | disposition home or self-care (01) ==
LOC: EDUNIT# 01:35 → ER FS 01:37
DX: M25.531 Pain in right wrist (principal); I10 Essential (primary) hypertension; I48.91 Unspecified atrial fibrillation; E78.00 Pure hypercholesterolemia, unspecified; F41.9 Anxiety disorder, unspecified; F32.9 Major depressive disorder, single episode, unspecified; K21.9 Gastro-esophageal reflux disease without esophagitis; Z79.82 Long term (current) use of aspirin; Z95.5 Presence of coronary angioplasty implant and graft; Z79.01 Long term (current) use of anticoagulants; Z87.891 Personal history of nicotine dependence; Z80.3 Family history of malignant neoplasm of breast; Z82.49 Family history of ischemic heart disease and other diseases of the circulatory system; Z80.52 Family history of malignant neoplasm of bladder
CPT/HCPCS: 36415; 73110; 80053; 84550; 85025; 85652; 86141; 93005

== ENCOUNTER → 2019-09-11 | Outpatient (CLI) | payer MEDICARE ==
[~2019-09-11] MED LIST changes: -DIGO125T PO; +DIGO125T3 PO; -DILT180C9 PO; -TRAM50TA2 PO; -TRAZ-222 PO; +TRM50T PO; +TRZ50T PO; +[UNRECOGNIZED DRUG - CODE] PO
--- NOTE | 2019-09-11 11:07 | Diagnostic Imaging Report ---
INDICATION: Left elbow pain. TIME OF EXAM: 10:51 a.m. FINDINGS: Three views of the left elbow were obtained. Alignment is normal. Well-corticated osseous densities are noted adjacent to both the medial and lateral epicondyles, likely chronic. No acute fracture, dislocation, or effusion is seen. IMPRESSION: No acute bony abnormality is detected. Dictated by: Dictated on workstation # [id number]
== END ==
LOC: RAD FS 10:48
PROVIDERS: ATTEND Nurse Practitioner Family
DX: S59.902A Unspecified injury of left elbow, initial encounter (principal)
CPT/HCPCS: 73080

== ENCOUNTER → 2019-11-01 | Outpatient (CLI) | payer MEDICARE ==
[~2019-11-01] MED LIST changes: +CATHETER FLUSH 10 ML SYR IV PRN; +HOLD METFORMIN - RECEIVED CONTRAST 20 ML VIAL IV SCH; +IOHEXOL 350 MG/ML 100 ML (OMNIPAQUE 350) VIAL IV ONE; +NS 100 ML (IVPB) BAG IV ONE; -TRAZ-190 PO; +TRAZ-227 PO
[2019-11-01 09:42] LABS: BUN/CREATININE RATIO 15; CREATININE SERUM 0.93 MG/DL (0.60-1.30); GFR ESTIMATED > 60
--- NOTE | 2019-11-01 11:44 | Diagnostic Imaging Report ---
PROCEDURE: CT neck soft tissue with contrast. TECHNIQUE: Multiple contiguous axial images were obtained through the neck after the administration of contrast. Auto Exposure Controls were utilized during the CT exam to meet ALARA standards for radiation dose reduction. INDICATION: Cyst near the jaw bone which is been increasing in size. History of skin cancer removed from the left ear. COMPARISON: None. Findings: A well-circumscribed, lobulated isoattenuating nonenhancing focus is seen in the anterior aspect of the left parotid gland measuring 2.2 x 1.7 cm and 1.9 cm craniocaudal. No suspicious enhancing components are seen. The remainder the parotid glands are unremarkable. The posterior nasopharynx and oropharynx demonstrate appropriate symmetry. There is no displacement of the parapharyngeal fat planes. There is no abnormal process evident within the prevertebral or retropharyngeal space. There is no evidence of abnormal thickening of the epiglottis or aryepiglottic folds. The vocal folds appear symmetric. The submandibular and thyroid gland are unremarkable. No pathologically enlarged cervical lymph nodes are evident. No focal inflammatory changes are demonstrated. No soft tissue mass or fluid collection demonstrated. The vascular structures the neck demonstrate no evidence of high-grade stenosis on this nondedicated exam. The visualized lung apices are clear. The visualized intracranial contents demonstrate no evidence of pathologic intracranial enhancement or intracranial mass effect. Visualized orbital contents are unremarkable. The visualized paranasal sinuses are clear. The mastoids and middle ears are clear. No acute osseous abnormality in the cervical spine. Impression: 1. Isoattenuating nonenhancing focus in the anterior aspect of the left parotid gland. This appearance is nonspecific and may represent intrinsic parotid tumor. Recommend surgical consultation and removal for pathologic evaluation. 2. Appropriate symmetry of the aerodigestive tract. 3. No evidence of pathologic adenopathy in the neck. Dictated by: Dictated on workstation # [id number]
[2019-11-01 13:48] LABS: CALCIUM 9.5 MG/DL (8.5-10.1); CARBON DIOXIDE 25 MMOL/L (21-32); CHLORIDE 100 MMOL/L (98-107); GLUCOSE 96 MG/DL (70-105); SODIUM 139 MMOL/L (135-145)
== END ==
LOC: RAD FS 08:52
PROVIDERS: ATTEND Nurse Practitioner Family
DX: L72.9 Follicular cyst of the skin and subcutaneous tissue, unspecified (principal); Z85.828 Personal history of other malignant neoplasm of skin
CPT/HCPCS: 36415; 70491; 80048

== ENCOUNTER 2020-07-28 09:17 | Day surgery (SDC) | payer MEDICARE ==
[2020-07-28] VITALS (9 sets, daily range): BP systolic 108–166; BP diastolic 61–96
[~2020-07-28] VITALS: Ht 185 cm; Wt 165.0 kg
[~2020-07-28 09:17] MED LIST changes: -CALC600T12 PO; -CATHETER FLUSH 10 ML SYR IV PRN; +CLC600T PO; +DILT-107 PO; -HOLD METFORMIN - RECEIVED CONTRAST 20 ML VIAL IV SCH; -IOHEXOL 350 MG/ML 100 ML (OMNIPAQUE 350) VIAL IV ONE; -NS 100 ML (IVPB) BAG IV ONE; -PANT40TA3 PO; +PANT40TA52 PO; -[UNRECOGNIZED DRUG - CODE] PO
[2020-07-28] MEDS ORDERED: NS IV 1000 ML 1,000 ML ONE ×2 (10:13→12:35)
[2020-07-28] MEDS ORDERED: LIDOCAINE 1% INJ 20 ML 20 ML VIAL ONE (10:13)
[2020-07-28] MEDS ORDERED: HEParin (CATH LAB) 2,000 ML IV ONE (10:13)
[2020-07-28] MEDS: NS IV 1000 ML 1,000 ML IV SCH ×2 (10:26→12:38)
[2020-07-28 10:45] LABS: MEAN PLATELET VOLUME 10.7 fL (9.0-12.2)
[2020-07-28] MEDS ORDERED: MULT-1136 PO (10:54)
[2020-07-28] MEDS ORDERED: CHOL500050 PO (10:54)
[2020-07-28] MEDS ORDERED: FAMO20TA3 PO (10:54)
[2020-07-28 10:56] LABS: INR 1.3 (0.8-1.4); PROTHROMBIN TIME PATIENT 16.8 SEC (12.2-14.7)
[2020-07-28 11:04] LABS: ALANINE AMINOTRANSFERASE 27 U/L (0-55); ALKALINE PHOSPHATASE 73 U/L (40-136); BILIRUBIN,TOTAL 0.7 MG/DL (0.1-1.0); BUN/CREATININE RATIO 16; CARBON DIOXIDE 26 MMOL/L (21-32); CHLORIDE 105 MMOL/L (98-107); CHOLESTEROL 165 MG/DL (< 200); CREATININE SERUM 0.93 MG/DL (0.60-1.30); GFR ESTIMATED > 60; GLUCOSE 103 MG/DL (70-105); HDL CHOLESTEROL 69 MG/DL (40-60); POTASSIUM 4.2 MMOL/L (3.6-5.0); SODIUM 140 MMOL/L (135-145); TOTAL PROTEIN 7.6 GM/DL (6.4-8.2); TRIGLYCERIDES 90 MG/DL (<150); VLDL CHOLESTEROL 18 MG/DL (5-40)
[2020-07-28] MEDS ORDERED: fentaNYL INJECTION 100 MCG/2 ML AMP ONE (12:27)
[2020-07-28] MEDS ORDERED: MIDAZOLAM 5 MG/5 ML (VERSED) VIAL ONE (12:27)
--- NOTE | 2020-07-28 13:34 | Cardiac Procedure Note-CS/ASA ---
Pre-Procedure Note Pre-Op Procedure Note H&P Reviewed The H&P was reviewed, patient examined and no changes noted. Date H&P Reviewed: Jul 28, 2020 Time H&P Reviewed: 12:30 Conscious Sedation Pre-Proced Time 12:30 ASA Score 3 For ASA 3 and 4: Consider anesthesia and medical clearance. Also, for patients with a history of failed moderate sedation consider anesthesia. Airway Lungs Heart ASA score ASA 1: a normal healthy patient ASA 2: a patient with a mild systemic disease (mid diabetes, controlled hypertension, obesity ASA 3: a patient with a severe systemic disease that limits activity (angina, COPD, prior Myocardial infarction) ASA 4: a patient with an incapacitating disease that is a constant threat to life (CHF, renal failure) ASA 5: a moribund patient not expected to survive 24 hrs. (ruptured aneurysm) ASA 6: a declared brain- patient whose organs are being harvested. For emergent operations, add the letter E after the classification Mallampati Classification Grade 3 Sedation Plan Analgesia, Amnesia, Plan communicated to team members, Discussed options with patient/fam, Discussed risks with patient/fam The patient is an appropriate candidate to undergo the planned procedure, sedation, and anesthesia. The patient immediately re-assessed prior to indication. POP STEPHENS MD FACP FAC [facility] Jul 28, 2020 13:34
--- NOTE | 2020-07-28 13:38 | Discharge Inst-Post CATH ---
Discharge Inst-CATH/EP Post Cardiac Cath/EP D/C Inst Follow Up/Plan F/u with Dr Bills in 2 weeks ACTIVITY * Go Home directly and rest. * Limit activity of the leg (or wrist if it was used) for 7 days including aerobics, swimming, jogging, bicycling, etc. * Restrict stair-climbing for 7 days if possible, if not, climb up with your n on-cath leg, then bring together on the same step. * Avoid lifting, pushing, pulling or excessive movement of the affected ex tremity for 7 days. * Customary sexual activity may be resumed after 2 days-use caution not to use a position that strains or causes pain to the affected extremity. * No driving for 24 hours. * NO SMOKING. * Avoid straining for bowel movements for 7 days. * Gentle walking on level ground is allowed. * Returning to work will depend on the type of procedure and the results. Your doctor will discuss this with you. CALL YOUR DOCTOR FOR ANY OF THE FOLLOWING: *If bleeding from the puncture site occurs- Apply gentle pressure to site with clean cloth and call your doctor or EMS. * If a knot or lump forms under the skin, increases in size, or causes pain. * If bruising appears to be worsening or moving further down your leg instead of disappearing. * Temperature above 101 F. CARE OF YOUR GROIN INCISION; * Bruising or purple discoloration of the skin near the puncture site is common. * You may shower only, no bathtub bathing for 5 days. Be careful to avoid slipping as your leg may feel stiff. * If a closure device was used on your femoral artery, please see the attached guide regarding care of the device and your leg. * Leave dressing on FOR 24 hours. CARE OF YOUR WRIST INCISION; * Bruising or purple discoloration of the skin near the puncture site is common. * You may shower. * DO NOT submerge wrist. * Leave dressing on FOR 24 hours. POP BILLS MD FACP FAC [facility] Jul 28, 2020 13:38
--- NOTE | 2020-07-28 13:38 | Discharge Inst-Cardiology ---
Discharge Inst-Cardiac Discharge Medications Continued Medications: Acetaminophen (Acetaminophen ER) 650 Mg Tablet.er 650 MG PO TID PRN for PAIN-MILD, TAB Alprazolam (Alprazolam) 0.5 Mg Tablet 0.5 MG PO HS PRN for ANXIETY, TAB Aspirin (Aspir 81) 81 Mg Tablet.dr 81 MG PO DAILY, TAB Cholecalciferol (Vitamin D3) (Vitamin D3) 125 Mcg Capsule 125 MCG PO DAILY, CAP Citalopram Hydrobromide (Citalopram HBr) 20 Mg Tablet 20 MG PO BID Diltiazem HCl (Diltiazem 24Hr ER) 120 Mg Cap.er.24h 120 MG PO DAILY, CAP Diphenhydramine HCl (Diphenhydramine HCl) 25 Mg Tablet 25 MG PO HS, TAB Famotidine (Acid Night Nurse (FAMOTIDINE)) 20 Mg Tablet 20 MG PO DAILY, TAB Folic Acid (Folic Acid) 1 Mg Tablet 1 MG PO DAILY, TAB Furosemide (Furosemide) 40 Mg Tablet 40 MG PO BID, TAB Gabapentin (Gabapentin) 300 Mg Capsule 300 MG PO BID, CAP prescribed TID, but only take BID Infliximab (Remicade) 100 Mg Soln 1000 MG IV Q 8 weeks, EA Lisinopril (Lisinopril) 40 Mg Tablet 40 MG PO DAILY, TAB Methotrexate Sodium (Methotrexate) 2.5 Mg Tablet 12.5 MG PO Monday and Monday, TAB TAKES 5 OF THE 2.5 MG TABLETS TWICE A WEEK Multivitamin (Multivitamin) 1 Each Tablet 1 EACH PO DAILY, TAB Ondansetron HCl (Zofran) 4 Mg Tab 4 MG PO Q4H PRN for NAUSEA/VOMITING, TAB Potassium Chloride (Klor-Con M20) 20 Meq Tab.er.prt 20 MEQ PO BID Pravastatin Sodium (Pravastatin Sodium) 40 Mg Tablet 40 MG PO HS, TAB Rivaroxaban (Xarelto Tablet) 20 Mg Tablet 20 MG PO HS, TAB Tramadol HCl (Tramadol HCl) 50 Mg Tablet 50 MG PO BID PRN for PAIN-MODERATE, TAB Trazodone HCl (Trazodone HCl) 100 Mg Tablet 100 MG PO HS, TAB POP STEPHENS MD FACP [facility] Jul 28, 2020 13:38
[2020-07-28] MEDS ORDERED: PATIENT MAY USE OWN MEDS, ALL PO SCH (13:45)
[2020-07-28] MEDS ORDERED: NS IV 1000 ML 1,000 ML IV SCH (13:45)
--- NOTE | 2020-07-28 14:05 | CARDIAC CATHETERIZATION ---
DATE OF SERVICE: 07/28/2020 CARDIAC CATHETERIZATION REPORT The patient is a 69-year-old man, who has a history of coronary artery disease and has had 2.5 mm stent in the first diagonal branch, left anterior descending artery that was placed in [place], [place] in 2011. Of late, he has been experiencing chest discomfort that is recurrent and suggestive of new onset angina with unstable symptoms. Cardiac catheterization was carried out after having obtained an informed consent. DESCRIPTION OF PROCEDURE: He was brought to the cardiac catheterization laboratory in a fasting state. Right groin was prepared and draped in the usual sterile fashion. Lidocaine 1% was used for local anesthesia. Modified Seldinger technique was used to advance a 5-Eritrean sheath in right femoral artery, 5-Eritrean JL4 catheter and then 5-Eritrean JL3.5 catheter were used to carry out angiography of the left coronary angiography. A 5-Eritrean JR4 catheter was used for right coronary angiography. A 5-Eritrean pigtail catheter was used for left heart catheterization and left ventricular angiography. Angiography of the right femoral artery was carried out through the sheath. Mynx was used to achieve hemostasis at the end of the cardiac catheterization procedure after sheath removal. He tolerated the procedure well. HEMODYNAMICS: Left ventricular end-diastolic pressure following coronary angiography was 12 mmHg. There is no significant pressure gradient on pullback across the aortic valve. Ascending aortic pressure was 105/60 with a mean of 78 mmHg. CORONARY ANGIOGRAPHY: Left main coronary artery, left anterior descending artery, left circumflex artery, right coronary artery does not exhibit angiographically significant disease. There is a widely patent stent in the first diagonal branch of the left anterior descending. The right coronary artery is dominant. LEFT VENTRICULAR ANGIOGRAPHY: Left ventricular angiography was carried out in the right anterior oblique projection. Global left ventricular systolic function normal. No regional wall motion abnormality was seen in this view. Left ventricular ejection fraction approximately 60%. CONCLUSIONS: 1. Angiographically mild coronary artery disease. 2. Patent coronary stent in the first diagonal branch of the left anterior descending. 3. Normal left ventricular end-diastolic pressure. 4. Normal global left ventricular systolic function with ejection fraction approximately 60%. DISCUSSION AND RECOMMENDATIONS: Based on results of the study, chest discomfort does not appear to be of coronary origin. Continuing risk factor modification is advised. Current regimen is being continued. Outpatient followup is advised. Job ID: [id number] DocumentID: [id number] Dictated Date: 07/28/2020 13:29:56 Technical Marketing Engineer Date: 07/28/2020 14:03:46 Dictated By: POP STEPHENS MD, MA, FACP, FACC,
== END 2020-07-28 16:40 | disposition home or self-care (01) ==
LOC: CATH 09:17 → SDC 14:09 → CATH 16:40
PROVIDERS: ATTEND Internal Medicine Cardiovascular Disease
DX: I25.10 Atherosclerotic heart disease of native coronary artery without angina pectoris (principal); G47.33 Obstructive sleep apnea (adult) (pediatric); I10 Essential (primary) hypertension; I48.92 Unspecified atrial flutter; I48.0 Paroxysmal atrial fibrillation; E78.2 Mixed hyperlipidemia; E66.01 Morbid (severe) obesity due to excess calories; Z68.42 Body mass index [BMI] 45.0-49.9, adult; Z79.82 Long term (current) use of aspirin; Z79.899 Other long term (current) drug therapy; Z79.01 Long term (current) use of anticoagulants; Z95.5 Presence of coronary angioplasty implant and graft; Z80.9 Family history of malignant neoplasm, unspecified; Z83.3 Family history of diabetes mellitus
CPT/HCPCS: 80053; 80061; 85027; 85610; 85730; 87081; 93005; 93458; C1760; C1894; 36415

== ENCOUNTER → 2020-07-31 | Outpatient (CLI) | payer MEDICARE ==
[~2020-07-31] MED LIST changes: +CHOL500050 PO; +FAMO20TA3 PO; +MULT-1136 PO
== END ==
LOC: CARD 09:44
PROVIDERS: ATTEND Nurse Practitioner Family
DX: R06.09 Other forms of dyspnea (principal)
CPT/HCPCS: 93306

== ENCOUNTER 2020-08-31 07:25 | Emergency (ER) | payer MEDICARE ==
[~2020-08-31] VITALS: Ht 186 cm; Wt 156.0 kg
--- NOTE | 2020-08-31 08:00 | ED GU-Male ---
General Chief Complaint: - Urinary Stated Complaint: BLEEDING FROM PENIS Source: patient Exam Limitations: no limitations History of Present Illness Date Seen by Provider: Aug 31, 2020 Time Seen by Provider: 07:57 Initial Comments 69-year-old male presents to the emergency department today with a chief complaint of hematuria. Patient states he had onset of blood with urination yesterday around 4:00. Patient states that he slept the majority of the night w ith a washcloth tucked between his legs and woke up with a washcloth bloodsoaked during the night. Patient denies any pain associated with urination, denies any abdominal pain. States that he feels like he is able to empty his bladder completely. He denies any recent fevers or chills. No cough or URI symptoms. No Covid complaints. Patient is anticoagulated on Xarelto for history of atrial fibrillation. States that he has had a history of bladder polyps in the past in the early he had 2 or 3 removed by a urologist at [facility]. He is not had any follow-up since. His mother has a history of bladder cancer. All other review of systems reviewed and negative except as stated above. Timing/Duration: yesterday Severity/Quality: moderate Radiation: none Activities at Onset: none Associated Symptoms: denies symptoms Allergies and Home Medications Allergies Coded Allergies: No Known Drug Allergies (Unverified , 03/23/16) Home Medications Acetaminophen 650 Mg Tablet.er, 650 MG PO TID PRN for PAIN-MILD, (Reported) Alprazolam 0.5 Mg Tablet, 0.5 MG PO HS PRN for ANXIETY, (Reported) Aspirin 81 Mg Tablet.dr, 81 MG PO DAILY, (Reported) Cholecalciferol (Vitamin D3) 125 Mcg Capsule, 125 MCG PO DAILY, (Reported) Citalopram Hydrobromide 20 Mg Tablet, 20 MG PO BID, (Reported) Diltiazem HCl 120 Mg Cap.er.24h, 120 MG PO DAILY, (Reported) Diphenhydramine HCl 25 Mg Tablet, 25 MG PO HS, (Reported) Famotidine 20 Mg Tablet, 20 MG PO DAILY, (Reported) Folic Acid 1 Mg Tablet, 1 MG PO DAILY, (Reported) Furosemide 40 Mg Tablet, 40 MG PO BID, (Reported) Gabapentin 300 Mg Capsule, 300 MG PO BID, (Reported) prescribed TID, but only take BID Infliximab 100 Mg Soln, 1,000 MG IV Q 8 weeks, (Reported) Lisinopril 40 Mg Tablet, 40 MG PO DAILY, (Reported) Methotrexate Sodium 2.5 Mg Tablet, 12.5 MG PO Monday and Monday, (Reported) TAKES 5 OF THE 2.5 MG TABLETS TWICE A WEEK Multivitamin 1 Each Tablet, 1 EACH PO DAILY, (Reported) Ondansetron HCl 4 Mg Tab, 4 MG PO Q4H PRN for NAUSEA/VOMITING, (Reported) Potassium Chloride 20 Meq Tab.er.prt, 20 MEQ PO BID, (Reported) Pravastatin Sodium 40 Mg Tablet, 40 MG PO HS, (Reported) Rivaroxaban 20 Mg Tablet, 20 MG PO HS, (Reported) Tramadol HCl 50 Mg Tablet, 50 MG PO BID PRN for PAIN-MODERATE, (Reported) Trazodone HCl 100 Mg Tablet, 100 MG PO HS, (Reported) Patient Home Medication List Home Medication List Reviewed: Yes Review of Systems Review of Systems Constitutional: no symptoms reported EENTM: no symptoms reported Respiratory: no symptoms reported Cardiovascular: no symptoms reported Gastrointestinal: no symptoms reported Genitourinary: hematuria Musculoskeletal: no symptoms reported Skin: no symptoms reported All Other Systemes Reviewed Negative Unless Noted: Yes Past Vcpeing-Dmputv-Hszhiq Hx Patient Social History Alcohol Use: Regular Use Number of Drinks Today: GG Alcohol Beverage of Choice: Beer, Whiskey Recreational Drug Use: No Type Used: Smokeless Tobacco Former Smoker, Quit: Mar 23, 1976 2nd Hand Smoke Exposure: No Recent Foreign Travel: No Contact w/Someone Who Travel: No Recent Hopitalizations: No Physical Abuse: No Sexual Abuse: No Mistreated: No Fear: No Immunizations Up To Date Date of Pneumonia Vaccine: Jun 21, 2015 Seasonal Allergies Seasonal Allergies: Yes (ALLERGY SHOTS ONCE A WEEK) Past Medical History Coronary Stent Respiratory: Yes (DOEST USE CPAP-CLAUSTROPHIC) Sleep Apnea Cardiac: Yes (STENT 2012 CARDIAC (AND LEG?)) Atrial Fibrillation, High Cholesterol, Hypertension, Valvular Heart Disease Neurological: No Reproductive Disorders: No Sexually Transmitted Disease: No HIV/AIDS: No Genitourinary: Yes (POLYPS REMOVED FROM BLADDER) Gastrointestinal: Yes Gastroesophageal Reflux Musculoskeletal: Yes (psoriatic arthritis) Arthritis, Chronic Back Pain Endocrine: No HEENT: No Loss of Vision: Bilateral Hearing Impairment: Denies Cancer: No Did You Recieve Any Treatments: No Psychosocial: Yes Anxiety, Depression Integumentary: Yes Psoriasis Blood Disorders: No Adverse Reaction/Blood Tranf: No (HAS HAD BLOOD WITH NO REACTION) Family Medical History CANCER 19 FATHER 19 MOTHER (BREAST AND BLADDER) G8 SISTER (BREAST BOTH SISTERS) Hypertension 19 MOTHER G8 SISTER No Pertinent Family Hx Physical Exam Vital Signs Vital Signs - First Documented 08/31/20 07:30 Temp 36.1 Pulse 67 Resp 24 B/P (MAP) 140/92 (108) Pulse Ox 97 O2 Delivery Room Air Capillary Refill : Height, Weight, BMI Height: 6'0.00" Weight: 334lbs. 0.0oz. 151.356719gp; 48.21 BMI Method: General Appearance: WD/WN, no apparent distress HEENT: PERRL/EOMI Cardiovascular: irregularly irregular Respiratory: lungs clear, normal breath sounds, no respiratory distress Gastrointestinal: non tender, soft Male: normal genitalia, other Extremities: normal inspection Neurologic/Psychiatric: alert, normal mood/affect, oriented x 3 Skin: normal color, warm/dry Progress/Results/Core Measures Suspected Sepsis SIRS Temperature: Pulse: Respiratory Rate: Laboratory Tests 08/31/20 08:11: White Blood Count 6.0 Blood Pressure / Mean: Laboratory Tests 08/31/20 08:11: Creatinine 0.96, Platelet Count 128L Results/Orders Lab Results Laboratory Tests Test 08/31/20 07:45 08/31/20 08:11 Range/Units Urine Color RED H Urine Clarity TURBID Urine pH 6.5 5-9 Urine Specific [place] 1.020 1.016-1.022 Urine Protein 2+ H NEGATIVE Urine Glucose (UA) TRACE H NEGATIVE Urine Ketones TRACE H NEGATIVE Urine Nitrite POSITIVE H NEGATIVE Urine Bilirubin NEGATIVE NEGATIVE Urine Urobilinogen 1.0 < = 1.0 MG/DL Urine Leukocyte Esterase 1+ H NEGATIVE Urine RBC (Auto) 3+ H NEGATIVE Urine RBC TNTC H /HPF Urine WBC 25-50 H /HPF Urine Squamous Epithelial Cells 2-5 /HPF Urine Crystals NONE /LPF Urine Bacteria NEGATIVE /HPF Urine Casts NONE /LPF Urine Mucus NEGATIVE /LPF Urine Culture Indicated YES White Blood Count 6.0 4.3-11.0 10^3/uL Red Blood Count 4.07 L 4.30-5.52 10^6/uL Hemoglobin 13.4 13.3-17.7 g/dL Hematocrit 42 40-54 % Mean Corpuscular Volume 103 H 80-99 fL Mean Corpuscular Hemoglobin 33 25-34 pg Mean Corpuscular Hemoglobin Concent 32 32-36 g/dL Red Cell Distribution Width 14.9 H 10.0-14.5 % Platelet Count 128 L 130-400 10^3/uL Mean Platelet Volume 10.7 9.0-12.2 fL Immature Granulocyte % (Auto) 1 % Neutrophils (%) (Auto) 59 42-75 % Lymphocytes (%) (Auto) 27 12-44 % Monocytes (%) (Auto) 10 0-12 % Eosinophils (%) (Auto) 4 0-10 % Basophils (%) (Auto) 0 0-10 % Neutrophils # (Auto) 3.5 1.8-7.8 10^3/uL Lymphocytes # (Auto) 1.6 1.0-4.0 10^3/uL Monocytes # (Auto) 0.6 0.0-1.0 10^3/uL Eosinophils # (Auto) 0.2 0.0-0.3 10^3/uL Basophils # (Auto) 0.0 0.0-0.1 10^3/uL Immature Granulocyte # (Auto) 0.0 0.0-0.1 10^3/uL Sodium Level 137 135-145 MMOL/L Potassium Level 3.8 3.6-5.0 MMOL/L Chloride Level 103 98-107 MMOL/L Carbon Dioxide Level 24 21-32 MMOL/L Anion Gap 10 5-14 MMOL/L Blood Urea Nitrogen 13 7-18 MG/DL Creatinine 0.96 0.60-1.30 MG/DL Estimat Glomerular Filtration Rate > 60 BUN/Creatinine Ratio 14 Glucose Level 109 H 70-105 MG/DL Calcium Level 8.7 8.5-10.1 MG/DL My Orders Orders - DELFINO MONTANO MD Ed Iv/Invasive Line Start (08/31/20 08:00) Cbc With Automated Diff (08/31/20 08:00) Basic Metabolic Panel (08/31/20 08:00) Ua Culture If Indicated (08/31/20 08:00) Urine Culture (08/31/20 07:45) Vital Signs/I&O 08/31/20 07:30 Temp 36.1 Pulse 67 Resp 24 B/P (MAP) 140/92 (108) Pulse Ox 97 O2 Delivery Room Air Capillary Refill : Progress Note : Time: 08:33 Progress Note bedside bladder scan showed 20-30ml in his bladder UA is nitrite and LE positive. WIll place on antibiotics, Levaquin 250 mg daily for 7 days. Will refer the patient to for urological follow up regarding his hematuria. Patient at this time does not have urinary retention due to his hematuria. A anthony catheter will not be placed. Patient is encouraged to drink lots of fluids to help clear the blood. Departure Impression Primary Impression: Hematuria Additional Impression: Acute cystitis Disposition: 01 HOME, SELF-CARE Condition: Stable Departure-Patient Inst. Decision time for Depature: 08:41 Referrals: [facility] (PCP) Primary Care Physician DEANNA YOON APRN (Family) Primary Care Physician Patient Instructions: Urinary Tract Infection, Adult (DC) Add. Discharge Instructions: Drink plenty of fluids to stay well-hydrated and help clear the blood in your urine. Take the antibiotics I have prescribed, Levaquin, 250 mg daily for the next 10 days. Ask your pharmacist about starting an over the counter PROBIOTIC as well while you are taking your antibiotics. Be sure and finish your other antibiotic as well. Please call and follow-up with the urologist on-call. He can further evaluate the bleeding in your urine. Return to the emergency room for any fevers especially with difficulty voiding/problems emptying your bladder or any other emergent concerning symptoms. Scripts Levofloxacin (Levofloxacin) 250 Mg Tablet 250 MG PO DAILY for 7 Days, #7 TAB Prov: DELFINO MONTANO MD 08/31/20 DELFINO MONTANO MD Aug 31, 2020 08:00
[2020-08-31 08:08] LABS: BILIRUBIN,URINE NEGATIVE (NEGATIVE); CLARITY,URINE TURBID; COLOR,URINE RED; GLUCOSE, URINE (UA) TRACE (NEGATIVE); KETONES,URINE TRACE (NEGATIVE); LEUKOCYTE ESTERASE ,URINE 1+ (NEGATIVE); NITRITE,URINE POSITIVE (NEGATIVE); PH,URINE 6.5 (5-9); PROTEIN,URINE 2+ (NEGATIVE)
[2020-08-31 08:22] LABS: BASOPHILS % (AUTO) 0 % (0-10); EOSINOPHILS # (AUTO) 0.2 10^3/uL (0.0-0.3); EOSINOPHILS % (AUTO) 4 % (0-10); HEMATOCRIT 42 % (40-54); HEMOGLOBIN 13.4 g/dL (13.3-17.7); LYMPHOCYTES # (AUTO) 1.6 10^3/uL (1.0-4.0); LYMPHOCYTES % (AUTO) 27 % (12-44); MEAN CORPUSCULAR HEMOGLOBIN 33 pg (25-34); MEAN CORPUSCULAR HGB CONC 32 g/dL (32-36); MEAN CORPUSCULAR VOLUME 103 fL (80-99); MEAN PLATELET VOLUME 10.7 fL (9.0-12.2); MONOCYTES # (AUTO) 0.6 10^3/uL (0.0-1.0); MONOCYTES % (AUTO) 10 % (0-12); NEUTROPHILS # (AUTO) 3.5 10^3/uL (1.8-7.8); NEUTROPHILS % (AUTO) 59 % (42-75); PLATELET COUNT 128 10^3/uL (130-400)
[2020-08-31 08:27] LABS: RBC,URINE TNTC /HPF; WBC,URINE 25-50 /HPF
[2020-08-31 08:28] LABS: BACTERIA,URINE NEGATIVE /HPF
[2020-08-31 08:30] LABS: CHLORIDE 103 MMOL/L (98-107); POTASSIUM 3.8 MMOL/L (3.6-5.0); SODIUM 137 MMOL/L (135-145)
[2020-08-31 08:31] LABS: CALCIUM 8.7 MG/DL (8.5-10.1); GLUCOSE 109 MG/DL (70-105)
[2020-08-31 08:33] LABS: CARBON DIOXIDE 24 MMOL/L (21-32)
[2020-08-31 08:35] LABS: CREATININE SERUM 0.96 MG/DL (0.60-1.30); GFR ESTIMATED > 60
[2020-08-31 08:36] LABS: BUN/CREATININE RATIO 14
[2020-08-31] MEDS ORDERED: LEVO250T46 PO (09:09)
[2020-08-31 09:11] VITALS: BP 140/92
== END 2020-08-31 09:15 | disposition home or self-care (01) ==
LOC: EDUNIT# 07:25 → ER 07:28
DX: N30.01 Acute cystitis with hematuria (principal); I10 Essential (primary) hypertension; E78.00 Pure hypercholesterolemia, unspecified; I48.91 Unspecified atrial fibrillation; G89.29 Other chronic pain; F41.9 Anxiety disorder, unspecified; F32.9 Major depressive disorder, single episode, unspecified; K21.9 Gastro-esophageal reflux disease without esophagitis; Z87.448 Personal history of other diseases of urinary system; Z87.891 Personal history of nicotine dependence; Z95.5 Presence of coronary angioplasty implant and graft; Z80.3 Family history of malignant neoplasm of breast; Z80.52 Family history of malignant neoplasm of bladder; Z79.82 Long term (current) use of aspirin; Z79.01 Long term (current) use of anticoagulants
CPT/HCPCS: 36415; 80048; 81000; 85025; 87088

== ENCOUNTER → 2020-09-09 | Outpatient (CLI) | payer MEDICARE ==
[~2020-09-09] MED LIST changes: -FOLI1TAB24 PO; +FOLI1TAB33 PO; +LEVO250T46 PO
--- NOTE | 2020-09-09 10:01 | Diagnostic Imaging Report ---
PROCEDURE: CT abdomen and pelvis without contrast. TECHNIQUE: Multiple contiguous axial images were obtained through the abdomen and pelvis without the use of intravenous contrast. Auto Exposure Controls were utilized during the CT exam to meet ALARA standards for radiation dose reduction. INDICATION: Hematuria x 1 week. COMPARISON: No prior studies are available for comparison. FINDINGS: The lung bases demonstrate some minimal nonspecific groundglass infiltrates in the bilateral lower lobes and right middle lobe. No discrete liver mass is identified. The gallbladder is unremarkable. There is no biliary ductal dilatation. The pancreas and spleen are unremarkable. No adrenal mass is detected. There are post surgical changes from gastric bypass surgery. No definite renal calculi are seen. There is no hydronephrosis. The ureters do not appear to be dilated. The bladder is decompressed. No definite bladder calculi are seen. The aorta is calcified but nonaneurysmal. The small and large bowel loops are of normal caliber. There is some diverticulosis of the sigmoid but no evidence of acute diverticulitis. There is no free fluid or fluid collection. The prostate is unremarkable. No definite abdominal or pelvic lymphadenopathy is identified. The bony structures are unremarkable. IMPRESSION: 1. No evidence of urinary tract calculi or obstruction. 2. Uncomplicated diverticulosis. Dictated by: Dictated on workstation # [id number]
== END ==
LOC: RAD FS 08:33
PROVIDERS: ATTEND Urology
DX: K57.30 Diverticulosis of large intestine without perforation or abscess without bleeding (principal); R31.0 Gross hematuria
CPT/HCPCS: 74176

== ENCOUNTER 2020-10-14 12:38 | Outpatient (CLI) | payer MEDICARE ==
[~2020-10-14 12:38] MED LIST changes: -LISI40TA PO; +LISI40TA9 PO
== END 2020-10-14 13:37 | disposition home or self-care (01) ==
LOC: SLEEP 12:38
PROVIDERS: ATTEND Otolaryngology Otolaryngology/Facial Plastic Surgery
DX: G47.33 Obstructive sleep apnea (adult) (pediatric) (principal)
CPT/HCPCS: G0399

== ENCOUNTER → 2021-01-26 | Outpatient (CLI) | payer MEDICARE ==
[~2021-01-26] MED LIST changes: +CALC600T91 PO; -CLC600T PO
--- NOTE | 2021-01-26 11:46 | Diagnostic Imaging Report ---
INDICATION: Lumbar degenerative disc disease. COMPARISON: None available. TECHNIQUE: Three radiographs of the lumbar spine dated 01/26/2021. FINDINGS: Five lumbar type vertebral bodies are present. Alignment of the lumbar spine is well maintained. Besides endplate degenerative changes, the vertebral body heights are well-maintained. Moderate disc space height loss at L4/L5 and L5/S1. Multilevel anterior and lateral osteophytes. No acute fracture or dislocation. No destructive osseous process. The sacroiliac joints are intact. Background vascular calcifications are present. IMPRESSION: No acute osseous abnormality with moderate multilevel degenerative changes, greatest within the lower lumbar spine. Dictated by: Dictated on workstation # [id number]
--- NOTE | 2021-01-26 12:27 | Diagnostic Imaging Report ---
EXAMINATION: Cervical spine at 9:46 a.m. INDICATION: Neck pain. Four views were obtained. There are no prior studies available for comparison. The lateral view does show narrowing of the disc space at C5-C6 and C6-C7. The other intervertebral spaces are fairly well-maintained. There is no fracture or acute bony abnormality noted. There is no sign of retropharyngeal edema either. The lung apices are clear. IMPRESSION: 1. There is no evidence for an acute bony abnormality. 2. There is degenerative disc disease at C5-C6 and C6-C7. 3. If there is clinical concern regarding spinal stenosis or nerve root encroachment, then MRI would be recommended for further study. Dictated by: Dictated on workstation # [id number]
== END ==
LOC: RAD FS 09:30
PROVIDERS: ATTEND Nurse Practitioner Family
DX: M47.816 Spondylosis without myelopathy or radiculopathy, lumbar region (principal); M51.36 Other intervertebral disc degeneration, lumbar region; M50.322 Other cervical disc degeneration at C5-C6 level; M50.323 Other cervical disc degeneration at C6-C7 level
CPT/HCPCS: 72040; 72100

== ENCOUNTER → 2021-06-09 | Outpatient (CLI) | payer MEDICARE ==
--- NOTE | 2021-06-09 14:49 | Diagnostic Imaging Report ---
INDICATION: Pain between the shoulder blades. TIME OF EXAM: 12:57 PM. FINDINGS: The curvature and alignment of the thoracic spine are normal. The vertebral body heights are well-maintained. No acute compression fracture is detected. There is multilevel degenerative disc disease with variable disc space narrowing and marginal spurring. The pedicles and paraspinous line are intact. IMPRESSION: Thoracic spondylosis. No acute bony abnormality is detected. Dictated by: Dictated on workstation # [id number]
== END ==
LOC: RAD FS 12:43
PROVIDERS: ATTEND Nurse Practitioner Family
DX: M47.814 Spondylosis without myelopathy or radiculopathy, thoracic region (principal)
CPT/HCPCS: 72072

== ENCOUNTER 2022-03-05 21:11 | Emergency (ER) | payer MEDICARE ==
[~2022-03-05 21:11] MED LIST changes: -LEVO250T46 PO; +LVF250T PO; +POTA-169 PO; -POTA20TA8 PO
[2022-03-05] MEDS ORDERED: HYDROcodone/APAP 5 MG/325 MG (LORTAB) TAB PO ONE (21:30)
--- NOTE | 2022-03-05 21:32 | ED Fall/Injury ---
General Chief Complaint: Trauma-Non Activation Stated Complaint: FALL Source: patient, family Exam Limitations: no limitations History of Present Illness Date Seen by Provider: Mar 05, 2022 Time Seen by Provider: 21:16 Initial Comments 71-year-old male with past medical history of CAD with stenting, A. fib on Xarelto, hypertension, hyperlipidemia, PEARL, and psoriatic arthritis coming in after he was with a dog, the dog ran away, the chain wrapped around the patient and he fell down 3 steps landing forward on his head. He did not pass out he remembers everything. He is having a moderate constant throbbing headache in the front of his head as well as pain and bleeding from his nose. Happened around 30 minutes prior to arrival as he had a drive from [place]. He was able to get up and walk around afterwards. Also having upper mid back pain, left knee pain, left wrist pain. Last took Xarelto around 6 PM tonight. Otherwise denying any other acute complaints. Tetanus is updated within the past 5 years Allergies and Home Medications Allergies Coded Allergies: No Known Drug Allergies (Unverified , 03/23/16) Patient Home Medication List Home Medication List Reviewed: Yes Acetaminophen (Acetaminophen ER) 650 Mg Tablet.er, 650 MG PO TID PRN for PAIN- MILD, (Reported) Entered as Reported by: TEMO ESPINAL on 03/30/16 1250 Alprazolam (Alprazolam) 0.5 Mg Tablet, 0.5 MG PO HS PRN for ANXIETY, (Reported) Entered as Reported by: YANNICK MCKEON on 06/18/18 1018 Aspirin (Aspir 81) 81 Mg Tablet.dr, 81 MG PO DAILY, (Reported) Entered as Reported by: PHIL PALENCIA on 04/30/19 1146 Cholecalciferol (Vitamin D3) (Vitamin D3) 125 Mcg Capsule, 125 MCG PO DAILY, (Reported) Entered as Reported by: MICHELE WHELAN on 07/28/20 1054 Citalopram Hydrobromide (Citalopram HBr) 20 Mg Tablet, 20 MG PO BID, (Reported) Entered as Reported by: TEMO ESPINAL on 03/30/16 1250 Diltiazem HCl (Diltiazem 24Hr ER) 120 Mg Cap.er.24h, 120 MG PO DAILY, (Reported) Entered as Reported by: DEANNA PEPE on 06/18/18 1457 Diphenhydramine HCl (Diphenhydramine HCl) 25 Mg Tablet, 25 MG PO HS, (Reported) Entered as Reported by: JOVITA RAMIREZ on 03/23/16 1204 Famotidine (Acid Cloth Doubling Machine Operator (FAMOTIDINE)) 20 Mg Tablet, 20 MG PO DAILY, (Reported) Entered as Reported by: MICHELE WHELAN on 07/28/20 1054 Folic Acid (Folic Acid) 1 Mg Tablet, 1 MG PO DAILY, (Reported) Entered as Reported by: JOVITA RAMIREZ on 03/23/16 1204 Furosemide (Furosemide) 40 Mg Tablet, 40 MG PO BID, (Reported) Entered as Reported by: JOVITA RAMIREZ on 03/23/16 1204 Gabapentin (Gabapentin) 300 Mg Capsule, 300 MG PO BID, (Reported) Entered as Reported by: YANNICK MCKEON on 06/18/18 1018 Infliximab (Remicade) 100 Mg Soln, 1,000 MG IV Q 8 weeks, (Reported) Entered as Reported by: JOVITA RAMIREZ on 03/23/16 1204 Levofloxacin (Levofloxacin) 250 Mg Tablet, 250 MG PO DAILY Prescribed by: DELFINO MONTANO on 08/31/20 0909 Lisinopril (Lisinopril) 40 Mg Tablet, 40 MG PO DAILY, (Reported) Entered as Reported by: JOVITA RAMIREZ on 03/23/16 1204 Methotrexate Sodium (Methotrexate) 2.5 Mg Tablet, 12.5 MG PO Monday and Monday, (Reported) Entered as Reported by: PHIL PALENCIA on 04/30/19 1146 Multivitamin (Multivitamin) 1 Each Tablet, 1 EACH PO DAILY, (Reported) Entered as Reported by: MICHELE WHELAN on 07/28/20 1054 Ondansetron HCl (Zofran) 4 Mg Tab, 4 MG PO Q4H PRN for NAUSEA/VOMITING, (Rep orted) Entered as Reported by: PHIL PALENCIA on 04/30/19 1148 Potassium Chloride (Klor-Con M20) 20 Meq Tab.er.prt, 20 MEQ PO BID, (Reported) Entered as Reported by: JOVITA RAMIREZ on 03/23/16 1204 Pravastatin Sodium (Pravastatin Sodium) 40 Mg Tablet, 40 MG PO HS, (Reported) Entered as Reported by: JOVITA RAMIREZ on 03/23/16 1204 Rivaroxaban (Xarelto Tablet) 20 Mg Tablet, 20 MG PO HS, (Reported) Entered as Reported by: JOVITA RAMIREZ on 03/23/16 1204 Tramadol HCl (Tramadol HCl) 50 Mg Tablet, 50 MG PO BID PRN for PAIN-MODERATE, (Reported) Entered as Reported by: PHIL PALENCIA on 04/30/19 1146 Trazodone HCl (Trazodone HCl) 100 Mg Tablet, 100 MG PO HS, (Reported) Entered as Reported by: DEANNA PEPE on 06/19/18 1100 Review of Systems Review of Systems Constitutional: No fever Eyes: Denies Blurred Vision Ears, Nose, Mouth, Throat: nose pain Respiratory: no symptoms reported Cardiovascular: no symptoms reported Gastrointestinal: no symptoms reported Genitourinary: no symptoms reported Musculoskeletal: joint pain Skin: no symptoms reported Psychiatric/Neurological: No Symptoms Reported All Other Systems Reviewed Negative Unless Noted: Yes Past Yiqolnb-Sxthex-Juizkp Hx Patient Social History Tobacco Use?: Yes Substance use?: No Alcohol Use?: Yes Alcohol Frequency: Once in a while Seasonal Allergies Seasonal Allergies: Yes (ALLERGY SHOTS ONCE A WEEK) Past Medical History Surgeries: Yes (GASTRIC SLEEVE) Bladder Surgery, Cardiac, Coronary Stent, Joint Replacement, Orthopedic Respiratory: No Sleep Apnea Cardiac: Yes Atrial Fibrillation, Coronary Artery Disease, High Cholesterol, Hypertension Neurological: Yes Neuropathy Reproductive Disorders: No Sexually Transmitted Disease: No HIV/AIDS: No Genitourinary: Yes (POLYPS REMOVED FROM BLADDER) Bladder Infection Gastrointestinal: No Gastroesophageal Reflux Musculoskeletal: Yes Arthritis Endocrine: No HEENT: No Loss of Vision: Bilateral Hearing Impairment: Denies Cancer: No Did You Recieve Any Treatments: No Psychosocial: Yes (ALCOHOLISM) Anxiety, Depression Integumentary: Yes Psoriasis Blood Disorders: No Adverse Reaction/Blood Tranf: No Family Medical History CANCER 19 FATHER 19 MOTHER (BREAST AND BLADDER) G8 SISTER (BREAST BOTH SISTERS) Hypertension 19 MOTHER G8 SISTER No Pertinent Family Hx Physical Exam Vital Signs Vital Signs - First Documented 03/05/22 21:17 Temp 36.8 Pulse 68 Resp 20 B/P (MAP) 145/62 (89) Pulse Ox 96 O2 Delivery Room Air Capillary Refill : Height, Weight, BMI Height: 6'0.00" Weight: 334lbs. 0.0oz. 151.338979ck; 45.00 BMI Method: General Appearance: WD/WN, no apparent distress HEENT: PERRL/EOMI, pharynx normal, other (Bruising and swelling to the nose with an abrasion with small amount of bleeding, bruising and hematoma to the right forehead) Neck: non-tender, full range of motion, supple, normal inspection Cardiovascular: no edema, no murmur, irregularly irregular Respiratory: chest non-tender, lungs clear, normal breath sounds, no respiratory distress, no accessory muscle use Gastrointestinal: normal bowel sounds, non tender, soft; No distended, No guarding, No rebound Back: normal inspection, no CVA tenderness, other (Upper thoracic tenderness) Extremities: normal range of motion, no calf tenderness, normal capillary refill, other (Left knee abrasion with tenderness, full range of motion and strength, left distal radius tenderness with bruising, abrasion to the left forearm) Neurologic/Psychiatric: emergency communications operator II-XII nml as tested, no motor/sensory deficits, alert, normal mood/affect, oriented x 3, other (Normal gait) Skin: normal color, warm/dry Lymphatic: no adenopathy [place] Coma Score Best Eye Response: (4) Open Spontaneously Best Verbal Response: (5) Oriented Best Motor Response: (6) Obeys Commands Procedures/Interventions Splinting and Joint Reduction : Splints: [place] Wrist Progress/Results/Core Measures Results/Orders My Orders Orders - KWESI HORTON MD Ct Head/Face/Cervical Wo (03/05/22 21:23) Ct Thoracic Spine Wo (03/05/22 21:23) Hand 3 View Left (03/05/22 21:23) Knee 3 View Left (03/05/22 21:23) Pelvis With Left Hip 2-3 View (03/05/22 21:23) Hydrocodone/Apap 5/325 Tablet (Lortab 5 (03/05/22 21:30) Chest Pa/Lat (2 View) (03/05/22 21:49) Medications Given in ED Current Medications Medications Dose Ordered Sig/Kassidy Route Start Time Stop Time Status Last Admin Dose Admin Acetaminophen/ Hydrocodone Bitart 1 ea ONCE ONCE PO 03/05/22 21:30 03/05/22 21:31 DC 03/05/22 21:30 1 EA Vital Signs/I&O 03/05/22 21:17 Temp 36.8 Pulse 68 Resp 20 B/P (MAP) 145/62 (89) Pulse Ox 96 O2 Delivery Room Air Progress Progress Note : Progress Note 71-year-old male with above history coming in due to a mechanical fall tripping due to his dog. ABCs were intact, vital stable on presentation, GCS 15. He has bruising to his forehead with hematoma, nose, left wrist, left knee. Scattered abrasions. There are no lacerations that would be amenable to closure. All wounds were cleaned and dressed if needed. Tetanus is up-to-date already. Given hydrocodone for pain control. CT head, cervical spine, face, thoracic spine ordered as well as x-rays of the left hand, pelvis, left hip, left knee. CT imaging negative for any acute findings. X-ray of the left hand on my interpretation with probable radial styloid fracture. We will place him in a prefabricated splint and have him follow-up with orthopedics. Otherwise I believe he is stable for discharge with outpatient follow-up. He was sent home with strict return precautions Diagnostic Imaging Diagonstic Imaging: Xray (chest, left hand, left knee, pelvis and left hip), CT (head/face/cspine/tspine) Comments NAME: RAJNI WOODS [facility] REC#: [id number] PT STATUS: REG ER : 1950 PHYSICIAN: KWESI HORTON MD ADMIT DATE: 03/05/22/ER FS Draft Date of Exam:03/05/22 CT HEAD/FACE/CERVICAL WO PROCEDURE: CT head, face and cervical spine without contrast. TECHNIQUE: Multiple contiguous axial images were obtained through the head, neck, and facial bones without the use of intravenous contrast. Sagittal and coronal reformations through the cervical spine and facial bones were also performed. Auto Exposure Controls were utilized during the CT exam to meet ALARA standards for radiation dose reduction. INDICATION: Fall. Head and neck pain. Hematoma on the forehead. COMPARISON: None. FINDINGS: CT head: The ventricles and cortical sulci are age-appropriate. There is no midline shift or mass-effect. No acute intracranial hemorrhage is seen. There is no CT evidence of acute territorial ischemia. No focal masses or collections are present. The calvarium is intact. Scalp contusion is seen overlying the forehead on the right. CT face: No acute facial fractures are visualized. The mandible, zygomatic arches, and pterygoid plates are intact. The bilateral TMJ demonstrate normal articulation. No nasal bone fractures. The bony nasal septum is midline without fracture. Small amount of retained secretions are seen in the left maxillary sinus. The mastoid air cells are well pneumatized. Scattered periodontal disease is noted. The globes and orbits are symmetric and unremarkable. No evidence of orbital rim fracture. CT cervical spine: No acute fracture or dislocation is seen in the cervical spine. No focal osseous lesions. There is straightening of the cervical spine. Vertebral body heights are well maintained. The craniocervical junction is well maintained. Soft tissues of the neck are unremarkable. The included lung apices are clear. IMPRESSION: 1. No hemorrhage or focal intra-axial mass. No CT evidence of large acute territorial ischemia. 2. No acute fracture or dislocation in the cervical spine. 3. No acute facial fracture. 4. Paranasal sinus disease involving the left maxillary sinus. 5. Periodontal disease. Recommend dental consultation. 6. Scalp contusion overlying the forehead on the right. Dictated on workstation # [id number] Dict: 03/05/222219 Trans: 03/05/222230 [facility] [id number] Interpreted by: CHALINO MACHUCA DO Electronically signed by: [facility] [place] NAME: RAJNI WOODS [facility] REC#: [id number] PT STATUS: REG ER : 1950 PHYSICIAN: KWESI HORTON MD ADMIT DATE: 03/05/22/ER FS Draft Date of Exam:03/05/22 CT THORACIC SPINE WO PROCEDURE: CT thoracic spine without contrast. TECHNIQUE: Multiple axial computerized tomography images were obtained from the base of the thoracic spine to the vertex without intravenous contrast. Auto Exposure Controls were utilized during the CT exam to meet ALARA standards for radiation dose reduction. INDICATION: Fall. Mid back pain. COMPARISON: None. FINDINGS: No acute fracture or dislocation is seen in the thoracic spine. Alignment is anatomic. No suspicious focal osseous lesion is seen. No evidence of acute spinal canal stenosis. No high density material is seen within the spinal canal. The paraspinal soft tissues are unremarkable. Dependent atelectasis is seen in the lung bases. IMPRESSION: No acute fracture or dislocation in the thoracic spine. Dictated on workstation # [id number] Dict: 03/05/222223 Trans: 03/05/222230 [facility] [id number] Interpreted by: CHALINO MACHUCA DO Electronically signed by: NAME: RAJNI WOODS [facility] REC#: [id number] PT STATUS: REG ER : 1950 PHYSICIAN: KWESI HORTON MD ADMIT DATE: 03/05/22/ER FS Draft Date of Exam:03/05/22 HAND 3 VIEW LEFT CLINICAL HISTORY: Fall. Left hand pain. COMPARISON: None. TECHNIQUE: 4 views of the left hand. FINDINGS: Age-indeterminate fracture is seen in the left radial styloid. Otherwise, no acute fracture is seen. Degenerative changes are present in the left hand with joint space narrowing and marginal osteophytes. These are greatest in the DIP and PIP joints and intercarpal joints. IMPRESSION: 1. Age-indeterminate fracture involving the left radial styloid. 2. Otherwise, no acute fracture in the left hand. Dictated on workstation # [id number] Dict: 03/05/222231 Trans: 03/05/222234 [facility] [id number] Interpreted by: CHALINO MACHUCA DO Electronically signed by: Departure Impression Primary Impression: Fall Qualified Codes: W19.XXXA - Unspecified fall, initial encounter Additional Impressions: Closed head injury Qualified Codes: S09.90XA - Unspecified injury of head, initial encounter Radial styloid fracture Qualified Codes: S52.515A - Nondisplaced fracture of left radial styloid process, initial encounter for closed fracture Disposition: 01 HOME, SELF-CARE Condition: Stable Departure-Patient Inst. Decision time for Depature: 23:00 Referrals: DEANNA YOON APRN (PCP) Primary Care Physician [facility] (Family) Primary Care Physician JAGJIT GONZALES Patient Instructions: Concussion, Adult ED, Radius Fracture Add. Discharge Instructions: You likely have a concussion. Take Tylenol as needed for headache and drink plenty of fluids. It does look like one of the bones in your wrist has a small break in it, its possible this was old and never healed. Follow-up with Matt Gonzales here in [facility] for repeat exam. Keep the wounds clean and I would put any type of antibiotic ointment on them that you have for the next couple of days. Work/School Note: Work Release Form Date Seen in the Emergency Department: Mar 05, 2022 Return to Work: Mar 07, 2022 Restrictions: No Restrictions KWESI HORTON MD Mar 05, 2022 21:32
--- NOTE | 2022-03-05 22:32 | Diagnostic Imaging Report ---
PROCEDURE: CT thoracic spine without contrast. TECHNIQUE: Multiple axial computerized tomography images were obtained from the base of the thoracic spine to the vertex without intravenous contrast. Auto Exposure Controls were utilized during the CT exam to meet ALARA standards for radiation dose reduction. INDICATION: Fall. Mid back pain. COMPARISON: None. FINDINGS: No acute fracture or dislocation is seen in the thoracic spine. Alignment is anatomic. No suspicious focal osseous lesion is seen. No evidence of acute spinal canal stenosis. No high density material is seen within the spinal canal. The paraspinal soft tissues are unremarkable. Dependent atelectasis is seen in the lung bases. IMPRESSION: No acute fracture or dislocation in the thoracic spine. Dictated by: Dictated on workstation # [id number]
--- NOTE | 2022-03-05 22:32 | Diagnostic Imaging Report ---
PROCEDURE: CT head, face and cervical spine without contrast. TECHNIQUE: Multiple contiguous axial images were obtained through the head, neck, and facial bones without the use of intravenous contrast. Sagittal and coronal reformations through the cervical spine and facial bones were also performed. Auto Exposure Controls were utilized during the CT exam to meet ALARA standards for radiation dose reduction. INDICATION: Fall. Head and neck pain. Hematoma on the forehead. COMPARISON: None. FINDINGS: CT head: The ventricles and cortical sulci are age-appropriate. There is no midline shift or mass-effect. No acute intracranial hemorrhage is seen. There is no CT evidence of acute territorial ischemia. No focal masses or collections are present. The calvarium is intact. Scalp contusion is seen overlying the forehead on the right. CT face: No acute facial fractures are visualized. The mandible, zygomatic arches, and pterygoid plates are intact. The bilateral TMJ demonstrate normal articulation. No nasal bone fractures. The bony nasal septum is midline without fracture. Small amount of retained secretions are seen in the left maxillary sinus. The mastoid air cells are well pneumatized. Scattered periodontal disease is noted. The globes and orbits are symmetric and unremarkable. No evidence of orbital rim fracture. CT cervical spine: No acute fracture or dislocation is seen in the cervical spine. No focal osseous lesions. There is straightening of the cervical spine. Vertebral body heights are well maintained. The craniocervical junction is well maintained. Soft tissues of the neck are unremarkable. The included lung apices are clear. IMPRESSION: 1. No hemorrhage or focal intra-axial mass. No CT evidence of large acute territorial ischemia. 2. No acute fracture or dislocation in the cervical spine. 3. No acute facial fracture. 4. Paranasal sinus disease involving the left maxillary sinus. 5. Periodontal disease. Recommend dental consultation. 6. Scalp contusion overlying the forehead on the right. Dictated by: Dictated on workstation # [id number]
--- NOTE | 2022-03-05 22:35 | Diagnostic Imaging Report ---
EXAMINATION: Chest 2 view. HISTORY: Fall. Chest pain. COMPARISON: 03/23/2016. FINDINGS: The lung volumes are normal. No focal consolidation is seen. No large pleural effusion or pneumothorax is seen. The cardiomediastinal silhouette is normal in size and contour. There is calcified aortic atherosclerotic plaque. No acute osseous abnormality is seen. IMPRESSION: No acute pleuroparenchymal process. Dictated by: Dictated on workstation # [id number]
--- NOTE | 2022-03-05 22:35 | Diagnostic Imaging Report ---
CLINICAL HISTORY: Fall. Left hand pain. COMPARISON: None. TECHNIQUE: 4 views of the left hand. FINDINGS: Age-indeterminate fracture is seen in the left radial styloid. Otherwise, no acute fracture is seen. Degenerative changes are present in the left hand with joint space narrowing and marginal osteophytes. These are greatest in the DIP and PIP joints and intercarpal joints. IMPRESSION: 1. Age-indeterminate fracture involving the left radial styloid. 2. Otherwise, no acute fracture in the left hand. Dictated by: Dictated on workstation # [id number]
--- NOTE | 2022-03-05 22:37 | Diagnostic Imaging Report ---
CLINICAL HISTORY: Fall. Pelvic and left hip pain. COMPARISON: None. TECHNIQUE: 3 views of the pelvis and left hip. FINDINGS: There is no acute fracture or dislocation of the pelvis and left hip. Alignment is anatomic. The imaged joint spaces are preserved. IMPRESSION: No acute fracture or dislocation in the pelvis and left hip. Dictated by: Dictated on workstation # [id number]
--- NOTE | 2022-03-05 22:38 | Diagnostic Imaging Report ---
CLINICAL HISTORY: Fall. Left knee pain. COMPARISON: None. TECHNIQUE: 3 views of the left knee. FINDINGS: There is no acute fracture or dislocation of the left knee. Alignment is anatomic. Degenerative changes are seen in the left knee with joint space narrowing and marginal osteophytes. No joint effusion is seen in the left knee. IMPRESSION: No acute fracture or dislocation in the left knee. Dictated by: Dictated on workstation # [id number]
[2022-03-05 22:46] VITALS: BP 145/62
== END 2022-03-05 22:51 | disposition home or self-care (01) ==
LOC: EDUNIT# 21:11 → ER FS 21:16
DX: S09.90XA Unspecified injury of head, initial encounter (principal); S00.83XA Contusion of other part of head, initial encounter; S52.512A Displaced fracture of left radial styloid process, initial encounter for closed fracture; S00.33XA Contusion of nose, initial encounter; S60.212A Contusion of left wrist, initial encounter; S80.02XA Contusion of left knee, initial encounter; S50.812A Abrasion of left forearm, initial encounter; I48.91 Unspecified atrial fibrillation; I25.10 Atherosclerotic heart disease of native coronary artery without angina pectoris; Z72.0 Tobacco use; Z28.310 Unvaccinated for COVID-19; Z79.01 Long term (current) use of anticoagulants; W10.9XXA Fall (on) (from) unspecified stairs and steps, initial encounter
CPT/HCPCS: 70450; 70486; 71046; 72125; 72128; 73130; 73502; 73562

== ENCOUNTER → 2022-12-06 | Outpatient (CLI) | payer MEDICARE ==
[~2022-12-06] MED LIST changes: +LEVO250T66 PO; -LVF250T PO
== END ==
LOC: CARDFS 11:43
PROVIDERS: ATTEND Internal Medicine Cardiovascular Disease
DX: I35.1 Nonrheumatic aortic (valve) insufficiency (principal); I27.20 Pulmonary hypertension, unspecified; I11.9 Hypertensive heart disease without heart failure
CPT/HCPCS: 93306

== ENCOUNTER → 2023-01-06 | Outpatient (CLI) | payer MEDICARE ==
[~2023-01-06] MED LIST changes: +CATHETER FLUSH 10 ML SYR IVP PRN; +REGADENOSON 0.4 MG/5 ML SYR (LEXISCAN) IV ONE
[2023-01-06 09:43] VITALS: BP 114/62
[2023-01-06 09:47] VITALS: BP 124/69
== END ==
LOC: CARD 07:22
PROVIDERS: ATTEND Nurse Practitioner Family
DX: I25.10 Atherosclerotic heart disease of native coronary artery without angina pectoris (principal)
CPT/HCPCS: 78452; 93017; A9502

== ENCOUNTER 2023-01-17 11:16 | Day surgery (SDC) | payer MEDICARE ==
[2023-01-17] VITALS (11 sets, daily range): BP systolic 104–148; BP diastolic 58–78
[~2023-01-17] VITALS: Ht 182 cm; Wt 164.6 kg
[~2023-01-17 11:16] MED LIST changes: -CATHETER FLUSH 10 ML SYR IVP PRN; -REGADENOSON 0.4 MG/5 ML SYR (LEXISCAN) IV ONE
[2023-01-17] MEDS ORDERED: HEParin (CATH LAB) 2,000 ML IV ONE (11:40)
[2023-01-17] MEDS ORDERED: NS IV 1000 ML 1,000 ML ONE (11:40)
[2023-01-17] MEDS ORDERED: LIDOCAINE 1% INJ 20 ML VIAL ONE (11:40)
[2023-01-17] MEDS ORDERED: NS IV 1000 ML 1,000 ML IV ONE (11:45)
[2023-01-17 12:07] LABS: HEMOGLOBIN 13.5 g/dL (13.3-17.7)
[2023-01-17 12:09] LABS: MEAN PLATELET VOLUME 11.4 fL (9.0-12.2); WHITE BLOOD COUNT 5.4 10^3/uL (4.3-11.0)
[2023-01-17 12:19] LABS: INR 1.1 (0.8-1.4); PROTHROMBIN TIME PATIENT 14.4 SEC (12.2-14.7)
[2023-01-17 12:29] LABS: BILIRUBIN,TOTAL 0.9 MG/DL (0.1-1.0); CALCIUM 9.2 MG/DL (8.5-10.1); CREATININE SERUM 1.12 MG/DL (0.60-1.30); POTASSIUM 4.6 MMOL/L (3.6-5.0); TOTAL PROTEIN 7.6 GM/DL (6.4-8.2)
[2023-01-17] MEDS ORDERED: GBPN600T PO (12:40)
[2023-01-17] MEDS ORDERED: POTA-51 PO (12:40)
[2023-01-17] MEDS ORDERED: TRAZ150T72 PO (12:40)
[2023-01-17] MEDS ORDERED: cpap (12:40)
[2023-01-17] MEDS ORDERED: PRED5TAB PO (12:40)
[2023-01-17] MEDS ORDERED: NITRO DRIP 25000 MCG/D5W 0 ML IV ONE (17:27)
[2023-01-17] MEDS ORDERED: HEParin 1000 UNIT/ML (10ML VIAL) FOR BOLUS ONE (17:27)
[2023-01-17] MEDS ORDERED: MIDAZOLAM 5 MG/5 ML (VERSED) VIAL ONE (17:27)
[2023-01-17] MEDS ORDERED: fentaNYL INJ 100 MCG/2 ML AMP ONE (17:27)
[2023-01-17] MEDS ORDERED: VERAPAMIL 5 MG/2 ML (CALAN) VIAL IV ONE (17:27)
--- NOTE | 2023-01-17 18:21 | Cardiac Procedure Note-CS/ASA ---
Pre-Procedure Note Pre-Op Procedure Note Date of Available H&P: December 22, 2022 Date H&P Reviewed: January 17, 2023 Time H&P Reviewed: 17:30 History & Physical: H&P Reviewed Changes from last HP MPI on 01-06-23 showed inf ischemia Moderate Sedation PreProcedure ASA Score 3 Airway Lungs Heart ASA score ASA 1: a normal healthy patient ASA 2: a patient with a mild systemic disease (mid diabetes, controlled hypertension, obesity ASA 3: a patient with a severe systemic disease that limits activity (angina, COPD, prior Myocardial infarction) ASA 4: a patient with an incapacitating disease that is a constant threat to life (CHF, renal failure) ASA 5: a moribund patient not expected to survive 24 hrs. (ruptured aneurysm) ASA 6: a declared brain- patient whose organs are being harvested. For emergent operations, add the letter E after the classification Mallampati Classification Grade 3 Sedation Plan Analgesia, Amnesia, Plan communicated to team members The patient is an appropriate candidate to undergo the planned procedure, sedation, and anesthesia. The patient immediately re-assessed prior to indication. POP STEPHENS MD FACP FAC CCDS January 17, 2023 18:21
[2023-01-17] MEDS ORDERED: PATIENT MAY USE OWN MEDS, ALL PO SCH (18:30)
--- NOTE | 2023-01-17 18:30 | Cardiac Cath Report ---
CARDIAC CATHETERIZATION DATE OF PROCEDURE: 01-17-23 INDICATION: Abn stress test HISTORY: The patient is a 72 year old male with CAD whose recent MPI was suggestive significant inf ischemia PROCEDURES PERFORMED: 1. Cor angio; 2. LHC and LV angio PROCEDURE DESCRIPTION: After informed consent and in the fasting state, left heart catheterization was performed through the R femoral artery utilizing a 5 Kinyarwanda system by percutaneous approach. Standard Sandi catheters (JL4 for L cors; JR4 for R cor; pigtail for LHC) were utilized for the diagnostic portion of the procedure. Mynx for hemostasis LV ANGIOGRAM MARTINEZ projection only. No wall motion abnormality. LVEF approx 60% HEMODYNAMICS: LVEDP 11 mmHg; no significant pressure gradient on pullback across the aortic valve CORONARY ANGIOGRAPHY: Left main coronary artery: Ok Left anterior descending coronary artery: Mild diffuse plaque. Patent stent in mid D1 Left circumflex coronary artery: No significant disease Right coronary artery: Dominant, mild plaque IMPRESSION: 1. Mild CAD 2. LVEDP 11 mmHg 3. LVEF 60% PLAN Medical therapy and risk factor modification. POP STEPHENS MD FACP [facility] January 17, 2023 18:30
--- NOTE | 2023-01-17 18:33 | Discharge Inst-Cardiology ---
Discharge Inst-Cardiac Discharge Medications Continued Medications: Acetaminophen (Acetaminophen ER) 650 Mg Tablet.er 650 MG PO TID PRN for PAIN-MILD, TAB Alprazolam (Alprazolam) 0.5 Mg Tablet 0.5 MG PO HS PRN for ANXIETY, TAB Aspirin (Aspir 81) 81 Mg Tablet.dr 81 MG PO DAILY, TAB Cholecalciferol (Vitamin D3) (Vitamin D3) 125 Mcg Capsule 125 MCG PO DAILY, CAP Citalopram Hydrobromide (Citalopram HBr) 20 Mg Tablet 20 MG PO DAILY [cpap] () Diphenhydramine HCl (Diphenhydramine HCl) 25 Mg Tablet 25 MG PO HS, TAB Folic Acid (Folic Acid) 1 Mg Tablet 1 MG PO DAILY, TAB Furosemide (Furosemide) 40 Mg Tablet 40 MG PO BID, TAB Gabapentin (Gabapentin) 600 Mg Tablet 1200 MG PO BID, TAB Infliximab (Remicade) 100 Mg Soln 1000 MG IV Q 8 weeks, EA Lisinopril (Lisinopril) 40 Mg Tablet 40 MG PO DAILY, TAB Methotrexate Sodium (Methotrexate) 2.5 Mg Tablet 12.5 MG PO Monday and Monday, TAB TAKES 5 OF THE 2.5 MG TABLETS TWICE A WEEK Potassium Chloride (Klor-Con M20) 20 Meq Tab.er.prt 20 MEQ PO DAILY Potassium Chloride (Potassium Chloride) 20 Meq Tablet.er 20 MEQ PO HS, TAB 2 tabs in am 1 tab at bedtime Pravastatin Sodium (Pravastatin Sodium) 40 Mg Tablet 40 MG PO HS, TAB Prednisone (Prednisone) 5 Mg Tablet 5 MG PO mon,wed,mon, TAB Rivaroxaban (Xarelto Tablet) 20 Mg Tablet 20 MG PO HS, TAB Tramadol HCl (Tramadol HCl) 50 Mg Tablet 50 MG PO BID PRN for PAIN-MODERATE, TAB Trazodone HCl (Trazodone HCl) 150 Mg Tablet 150 MG PO HS, TAB [facility]ENS [facility] January 17, 2023 18:33
--- NOTE | 2023-01-17 18:33 | Discharge Inst-Post CATH ---
Discharge Inst-CATH/EP Post Cardiac Cath/EP D/C Inst Follow Up/Plan F/u with Dr Bills in one month ACTIVITY * Go Home directly and rest. * Limit activity of the leg (or wrist if it was used) for 7 days including aerobics, swimming, jogging, bicycling, etc. * Restrict stair-climbing for 7 days if possible, if not, climb up with your non-cath leg, then bring together on the same step. * Avoid lifting, pushing, pulling or excessive movement of the affected e xtremity for 7 days. * Customary sexual activity may be resumed after 2 days-use caution not to use a position that strains or causes pain to the affected extremity. * No driving for 24 hours. * NO SMOKING. * Avoid straining for bowel movements for 7 days. * Gentle walking on level ground is allowed. * Returning to work will depend on the type of procedure and the results. Your doctor will discuss this with you. CALL YOUR DOCTOR FOR ANY OF THE FOLLOWING: *If bleeding from the puncture site occurs- Apply gentle pressure to site with clean cloth and call your doctor or EMS. * If a knot or lump forms under the skin, increases in size, or causes pain. * If bruising appears to be worsening or moving further down your leg instead of disappearing. * Temperature above 101 F. CARE OF YOUR GROIN INCISION; * Bruising or purple discoloration of the skin near the puncture site is common. * You may shower only, no bathtub bathing for 5 days. Be careful to avoid slipping as your leg may feel stiff. * If a closure device was used on your femoral artery, please see the attached guide regarding care of the device and your leg. * Leave dressing on FOR 24 hours. CARE OF YOUR WRIST INCISION; * Bruising or purple discoloration of the skin near the puncture site is common. * You may shower. * DO NOT submerge wrist. * Leave dressing on FOR 24 hours. POP BILLS MD FACP FAC CCDS January 17, 2023 18:33
[2023-01-17] MEDS ORDERED: ACETAMINOPHEN 500 MG TAB (TYLENOL) ONE (23:27)
[2023-01-17] MEDS ORDERED: ACETAMINOPHEN 500 MG TAB (TYLENOL) PO PRN (23:30)
[2023-01-18] VITALS: BP 140/96
[2023-01-18] MEDS: NS IV 1000 ML 1,000 ML IV SCH ×2 (01:15→05:00)
[2023-01-18 02:00] VITALS: BP 131/82
[2023-01-18 04:00] VITALS: BP 141/65
[2023-01-18 04:15] VITALS: BP 124/73
[2023-01-18 07:32] VITALS: BP 138/81
--- NOTE | 2023-01-18 09:15 | Progress Note - Cardiology ---
Cardiology SOAP Progress Note Subjective: Sitting up in recliner at the bedside Reports chronic back pain which is somewhat worse this morning d/t bed rest period overnight No c/o CP, palpitations, SOB, syncope or near syncope No c/o discomfort at the right groin site Objective: I&O/Vital Signs 01/17/23 01/17/23 01/18/23 01/18/23 21:30 22:00 00:00 01:00 Temp 36.7 Pulse 65 64 52 65 Resp 28 10 14 B/P (MAP) 132/62 (88) 122/73 (88) 140/96 (111) Pulse Ox 97 97 97 O2 Delivery Room Air Room Air Room Air 01/18/23 01/18/23 01/18/23 01/18/23 02:00 04:00 04:00 04:15 Temp 36.1 Pulse 66 53 56 Resp 17 28 B/P (MAP) 131/82 (98) 141/65 (90) 124/73 (90) Pulse Ox 96 93 93 O2 Delivery Room Air Room Air Room Air 01/18/23 01/18/23 07:05 07:32 Temp 36.2 Pulse 61 58 Resp 13 B/P (MAP) 138/81 (100) Pulse Ox 96 O2 Delivery Room Air Weight (Pounds): 334 Weight (Ounces): 0.0 Weight (Calculated Kilograms): 151.358753 Side: right Groin site without hematoma: Yes Condition: DP/PT pulses palpable, extremity w/d/p Bruising: mild bruising Constitutional: AAO x 3, well-developed, well-nourished Respiratory: No accessory muscle use, No respiratory distress; chest expansion is symmetric, chest is bilaterally symmetric, lungs clear to auscultation Cardiovascular: irregularly irregular; No JVD; S1 and S2 Gastrointestional: No tender; soft, round; No guarding; audible bowel sounds Extremities: no lower extremity edema bilateral Neurologic/Psychiatric: grossly intact (moves all extremities) Skin: No rash on exposed areas, No ulcerations on exposed areas Results/Procedures: Labs Laboratory Tests 01/17/23 11:58: White Blood Count 5.4, Red Blood Count 4.40, Hemoglobin 13.5, Hematocrit 42, Mean Corpuscular Volume 95, Mean Corpuscular Hemoglobin 31, Mean Corpuscular Hemoglobin Concent 32, Red Cell Distribution Width 17.5H, Platelet Count 125L, Mean Platelet Volume 11.4, Percent Immature Platelet Fraction 5.9, Prothrombin Time 14.4, INR Comment 1.1, Activated Partial Thromboplast Time 35, Sodium Level 138, Potassium Level 4.6, Chloride Level 105, Carbon Dioxide Level 24, Anion Gap 9, Blood Urea Nitrogen 16, Creatinine 1.12, Estimat Glomerular Filtration Rate 71, BUN/Creatinine Ratio 14, Glucose Level 97, Calcium Level 9.2, Corrected Calcium 9.2, Total Bilirubin 0.9, Aspartate Amino Transf (AST/SGOT) 32, Alanine Aminotransferase (ALT/SGPT) 28, Alkaline Phosphatase 79, Total Protein 7.6, Albumin 4.0, Triglycerides Level 81, Cholesterol Level 137, LDL Cholesterol D irect 77, VLDL Cholesterol 16, HDL Cholesterol 43 Microbiology 01/17/23 MRSA Screen - Final, Complete MRSA not isolated Laboratory Tests 01/17/23 11:58 A/P: Assessment: Chronic persistent A Fib - ECG on 02/10/21: A Fib with vent response 80 bpm - TSH normal (2.3) on 12/21/18 - Chronic stroke prophylaxis with Xarelto CAD - s/p BETY to LAD-Diag (2.5x20) at time of cath of 2011 at [facility]. - Last card cath 07/28/20: angiographically mild CAD, patent D1 stent, normal LVEDP, LVEF 60% - Cardiac cath of 01-17-23 following abnormal MPI showed mild CAD with LVEF 60% Pulmonary hypertension - suspected to be due obesity-hypovent and OSS - Echo of 12-06-22 showed LVEF 60-65%. LA severely dilated. RA mod dilated. T rivial AoR. 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
== END 2023-01-18 10:35 | disposition home or self-care (01) ==
LOC: CATH 11:16 → CSD 18:39 → CATH 01-18 10:35
PROVIDERS: ATTEND Internal Medicine Cardiovascular Disease
DX: I25.10 Atherosclerotic heart disease of native coronary artery without angina pectoris (principal); I48.19 Other persistent atrial fibrillation; I27.20 Pulmonary hypertension, unspecified; G47.33 Obstructive sleep apnea (adult) (pediatric); I10 Essential (primary) hypertension; L40.9 Psoriasis, unspecified; M54.50 Low back pain, unspecified; G89.29 Other chronic pain; E66.01 Morbid (severe) obesity due to excess calories; Z68.42 Body mass index [BMI] 45.0-49.9, adult; E78.2 Mixed hyperlipidemia; F17.220 Nicotine dependence, chewing tobacco, uncomplicated; Z28.310 Unvaccinated for COVID-19; Z98.84 Bariatric surgery status; Z79.899 Other long term (current) drug therapy; Z79.01 Long term (current) use of anticoagulants; Z95.5 Presence of coronary angioplasty implant and graft
CPT/HCPCS: 80053; 80061; 85027; 85610; 85730; 87081; 93458; C1760; C1894; 36415; 93005